=== PATIENT | male | born 1965 | race Native Hawaiian/Other Pacific Islander ===

== ENCOUNTER 2016-08-10 17:31 | Observation (INO) | payer OTHER ==
[2016-08-10 17:51] VITALS: O2SAT 98
[2016-08-10] MEDS ORDERED: Sodium Chloride 0.9% 1,000 ML IV STA (19:15)
[2016-08-10] MEDS ORDERED: Multivitamin (MVI) 10 ML, Thiamine 100 MG, Folic Acid 1 MG in Dextrose 5% In Water 1,00... IV ONE (19:18)
[2016-08-10 19:55] LABS: ADD MANUAL DIFF? NO
[2016-08-10 20:01] LABS: BASO # 0.02 K/mm3 (0.0-2.0); BASO % 0.4 % (0.0-3.0); EOS # 0.1 (0.0-0.7); EOS % 1.8 % (1.5-5.0); GRAN # 2.44 (1.4-6.5); GRAN % 53.5 % (50.0-68.0); HEMATOCRIT 38.6 % (42.0-52.0); LYMPH # 1.5 (1.2-3.4); LYMPH % 33.3 % (22.0-35.0); MEAN CELL VOLUME 99.2 fL (80.0-105.0); MEAN CORPUSCULAR HEMOGLOBIN 35.2 pg (25.0-35.0); MEAN CORPUSCULAR HGB CONC 35.5 g/dl (31.0-37.0); MEAN PLATELET VOLUME 9.7 fl (7.0-11.0); MONO # 0.5 (0.1-0.6); PLATELET COUNT 91 10^3/uL (120.0-450.0); RED CELL DISTRIBUTION WIDTH 12.5 % (11.5-14.5); WHITE BLOOD COUNT 4.6 10^3/ul (4.5-11.0)
--- NOTE | 2016-08-10 20:16 | ED PDOC ---
Arrival/HPI - General Chief Complaint: Alcohol Ingestion Time Seen by Provider: 08/10/16 18:32 Historian: Patient, Family - History of Present Illness Narrative History of Present Illness (Text): 08/10/16 20:16 Patient with pmh of chronic alcoholism, presents for psychiatric evaluation. Patient reports the following associated symptoms - loss of appetite, constant sleeping, increase in drinking etoh x 1 week. States that he is going through a lot of personal issues and has never seen a psychiatrist, he has been treating himself by drinking more alcohol. States that he was just admitted at [facility] for eoth withdrawal and he signed out AMA after the withdrawals improved. 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 Other psychiatric symptoms: (-) hallucinations, (-) suicidal ideation, (-) homicidal ideation. Otherwise: (-) trauma, (-) fever, (-) headache, (-) dyspnea, (-) vomiting, (-) substance abuse, (-) suicidal ideation , (-) patient intent of initiating a suicide attempt, (-) plan. PMD none Past Medical History - Provider Review Nursing Documentation Reviewed: Yes - Cardiac Hx OH: Yes - Pulmonary Hx Respiratory Disorders: No - Neurological Hx Neurological Disorder: No - HEENT Hx HEENT Disorder: No - Renal Hx Renal Disorder: No - Endocrine/Metabolic Hx Endocrine Disorders: No - Hematological/Oncological Hx Blood Disorders: No - Integumentary Hx Dermatological Disorder: No - Musculoskeletal/Rheumatological Hx Musculoskeletal Disorders: No - Genitourinary/Gynecological Hx Genitourinary Disorders: No - Psychiatric Hx Psychophysiologic Disorder: No Hx Substance Use: No - Surgical History Hx Coronary Artery Bypass Graft: Yes Family/Social History - Physician Review Nursing Documentation Reviewed: Yes Family/Social History: No Known Family HX Smoking Status: Heavy Smoker > 10 Cigarettes Daily Hx Alcohol Use: Yes Frequency of alcohol use: Daily Hx Substance Use: No Allergies/Home Meds Allergies/Adverse Reactions: Allergies No Known Allergies Allergy (Verified 08/10/16 17:43) Review of Systems - Review of Systems Constitutional: Normal. absent: Fatigue, Weight Change, Fevers Respiratory: Normal. absent: SOB, Cough, Sputum Cardiovascular: Normal. absent: Chest Pain, Palpitations, Edema Gastrointestinal: Normal, Appetite Changes (loss of appetite). absent: Abdominal Pain, Stool Changes Musculoskeletal: Normal. absent: Arthralgias, Back Pain, Neck Pain Skin: Normal. absent: Rash, Pruritis, Skin Lesions Neurological: Normal. absent: Headache, Dizziness, Focal Weakness Psychiatric: Normal, Depression. absent: Anxiety, Suicidal Ideation Physical Exam - Physical Exam Narrative Physical Exam (Text): 08/10/16 20:15 GENERAL APPEARANCE: Patient is awake, alert, oriented x 3, in no acute distress. (-) Tremors noted, (+) strong odor of etoh. SKIN: Warm, dry; (-) cyanosis. HEAD: (-) scalp swelling, (-) scalp tenderness. EYES: (-) conjunctival pallor, (-) scleral icterus, (-) nystagmus. ENMT: Mucous membranes dry. Airway patent: (-) stridor. NECK: (-) tenderness, (-) stiffness, (-) lymphadenopathy. CHEST AND RESPIRATORY: (-) rales, (-) rhonchi, (-) wheezes; breath sounds equal. ABDOMEN: Soft, (-) distention, (-) tenderness, (-) guarding. NEURO AND PSYCH: Mental status as above. Affect: flat. Memory: Intact. 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 Strength and DTRs symmetric. Vital Signs Temp Pulse Resp BP Pulse Ox 08/10/16 17:44 97.8 F 88 16 155/66 H 98 Medical Decision Making ED Course and Treatment: 08/10/16 20:13 51 yo chronic alcoholic, presents for feelings of depression and interest in obtaining help for etoh withdrawal. Plan: -- Labs -- Urinalysis -- EKG -- CXR -- NS bolus IV / Banana bag IV -- Placed in ED observation -- PES evaluation - RAD Interpretation Radiology Orders: 08/10/16 19:03 CHEST PORTABLE [RAD] Stat - Medication Orders Current Medication Orders: Discontinued Medications Sodium Chloride (Sodium Chloride 0.9%) 1,000 mls @ 1,000 mls/hr IV .Q1H STA Stop: 08/10/16 20:14 Last Admin: 08/10/16 19:35 Dose: 1,000 mls/hr Multivitamins/Vitamin C 10 ml/Thiamine HCl 100 mg/ Folic Acid 1 mg/ Dextrose 1, 011.2 mls @ 1,000 mls/hr IV .Q1H1M ONE Stop: 08/10/16 20:18 Last Admin: 08/10/16 21:10 Dose: 1,000 mls/hr Lorazepam (Ativan) 1 mg IV STAT STA Stop: 08/10/16 19:09 Last Admin: 08/10/16 19:38 Dose: 1 mg Lorazepam (Ativan) 1 mg IVP ONCE ONE PRN Reason: Protocol Stop: 08/11/16 01:45 ED OBSERVATION Date of observation admission: 08/10/16 Time of observation admission: 19:05 - Observation admission statement Patient is being placed in observation because:: Etoh intoxication and need for PES evaluation - Goals of Observation Goals of observation are:: To monitor patient's sign's and symptoms. - Progress Note Progress Note: 08/10/16 19:00 EKG: NSR at 84 bpm, normal axis, (-) acute ST changes, as read by GUSTAVO. CXR: NAD, as read by GUSTAVO. Labs reviewed, patient's etoh level is noted to be elevated. PES called and notified of consult. Patient seen and evaluated by PES, recommends repeat evaluation after patient is more sober for psychiatric disposition. Further plan of care for continued observation discussed with the patient and with family and they agree with plan for continued observation in the ER and re- evaluation by PES once the patient is clinically sober. 08/11/16 01:50 On re-evaluation, patient is awake, alert and oriented x 3. Patient has no tremors at this time, patient is observed ambulating in the ER with a normal gait with no tremors noted, however he states that he would like medication at this time to prevent any tremors from occurring. Ativan 1 mg IV ordered. After PES evaluation, patient is cleared for outpatient psychiatric treatment. Patient and family notified that he needs to f/u as an outpatient with psych referral provided. Patient and family also given referral to [facility] for rehab. Advised to call phone number provided if the patient is willing to go to rehab. Patient and family feel comfortable with outpatient f/u. Patient states he fully agrees with and understands discharge instructions. States that he agrees with the plan and disposition. Verbalized and repeated discharge instructions and plan. I have given the patient opportunity to ask any additional questions. Follow up with outpatient psych referral and rehab referral - [facility] in 1-2 days without fail. Advised to take medication as prescribed prn for withdrawal symptoms. Return to the emergency room at any time for any new or worsening symptoms. 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 Disposition/Present on Arrival - Present on Arrival Any Indicators Present on Arrival: No History of DVT/PE: No History of Uncontrolled Diabetes: No Urinary Catheter: No History of Decub. Ulcer: No History Surgical Site Infection Following: None - Disposition Have Diagnosis and Disposition been Completed?: Yes Diagnosis: Alcohol intoxication, Depression Disposition: HOME/ ROUTINE Disposition Time: 19:05 (Pt was placed in ED observation. ) Patient Plan: Discharge Condition: STABLE
[2016-08-10 20:19] LABS: ALB/GLOB RATIO 1.1 (1.1-1.8); ALKALINE PHOSPHATASE 102 U/L (38-133); ALT/SGPT 69 U/L (7-56); AST/SGOT 147 U/L (15-59); BILIRUBIN,TOTAL 1.8 mg/dL (0.2-1.3); BLOOD UREA NITROGEN 15 mg/dL (7-21); CALCIUM 8.4 mg/dL (8.4-10.5); CARBON DIOXIDE 29 mmol/L (21-33); GFR AFRICAN-AMERICAN > 60; GLUCOSE,RANDOM 96 mg/dL (70-110); POTASSIUM 3.6 mmol/L (3.6-5.0); SODIUM 141 mmol/L (132-148); TOTAL PROTEIN 6.1 g/dL (5.8-8.3)
[2016-08-10 20:20] LABS: CHLORIDE 104 mmol/L (98-107)
[2016-08-11 00:05] LABS: PH,URINE 6.5 (4.7-8.0); URINE BILIRUBIN NEGATIVE (NEGATIVE); URINE BLOOD NEGATIVE (NEGATIVE); URINE GLUCOSE (UA) 250 mg/dL (NEGATIVE); URINE KETONE NEGATIVE (NEGATIVE); URINE LEUKOCYTE ESTERASE NEGATIVE Leu/uL (NEGATIVE); URINE PROTEIN NEGATIVE mg/dL (<30 mg/dL); URINE UROBILINOGEN 0.2 E.U./dL (<1 E.U./dL)
[2016-08-11 00:25] LABS: URINE COLOR LIGHT YELLOW (YELLOW)
[2016-08-11 00:26] LABS: URINE APPEARANCE CLEAR (CLEAR)
[2016-08-11 02:12] VITALS: BP 147/61; PULSE 86; RESP 18; TEMP 98.1
--- NOTE | 2016-08-11 10:38 | RAD ---
HISTORY: psych eval COMPARISON: No prior. FINDINGS: LUNGS: No active pulmonary disease. PLEURA: No significant pleural effusion identified, no pneumothorax apparent. CARDIOVASCULAR: Normal heart size. Sternotomy wires noted. OSSEOUS STRUCTURES: No significant abnormalities. VISUALIZED UPPER ABDOMEN: Normal. OTHER FINDINGS: None. IMPRESSION: No active disease.
--- NOTE | 2016-08-11 18:12 | CARD ---
APPROVED REPORT EKG Measurement Heart [id number] ID [id number] <Conclusion> Normal sinus rhythm Minimal voltage criteria for LVH, may be normal variant Nonspecific T wave abnormality Prolonged QT Abnormal ECG
== END 2016-08-11 01:49 | disposition home or self-care (01) ==
LOC: ED 17:31 → EROBSV 19:05
PROVIDERS: ADMIT Emergency Medicine; ATTEND Emergency Medicine
DX: F32.9 Major depressive disorder, single episode, unspecified (principal); F10.129 Alcohol abuse with intoxication, unspecified; Y90.7 Blood alcohol level of 200-239 mg/100 ml
CPT/HCPCS: 71010; 80053; 80320; 80324; 80345; 80346; 80349; 80353; 80358; 80361; 81003; 83992; 85025; 90791; 93005; 96374; 96375; 96376; 99283; G0378; J2060; J3411; J7040; J7070

== ENCOUNTER 2017-06-07 19:00 | Inpatient (IN) | payer OTHER ==
[2017-06-07 19:04] VITALS: BMI 18.2
--- NOTE | 2017-06-07 19:35 | ED PDOC ---
Arrival/HPI - General Chief Complaint: Chest Pain Time Seen by Provider: 06/07/17 19:07 Historian: Patient, Family - History of Present Illness Narrative History of Present Illness (Text): 06/07/17 19:35 A 51 year old male presents to the emergency department accompanied by family requesting medical clearance. Patient reports he requires medical clearance to be able to join a 30 day residential program for alcoholism and depression. Patient notes he has not been feeling well for the past week. He notes feeling fatigue which is affecting his work. Family wants patient to start program but patient feels he is not strong enough. Patient reports a history of heart valve replacement in 1194 and has not had any cardiac follow up since. He admits to drinking alcohol daily due to feeling anxious and "hearing his heart skip a beat." Patient reports being seen by a physician who prescribed him antidepressants, with no improvement. At the time he was also informed about having an enlarged heart, but has not followed up with recommended specialist. Patient denies any fever, chills, nausea, vomiting, abdominal pain, chest pain, shortness of breath or any other complaints. Past Medical History - Provider Review Nursing Documentation Reviewed: Yes - Cardiac Hx Hypertension: Yes Other/Comment: Valve replacement. - Pulmonary Hx Respiratory Disorders: No - Neurological Hx Seizures: No - HEENT Hx HEENT Disorder: No - Renal Hx Renal Disorder: No - Endocrine/Metabolic Hx Endocrine Disorders: No - Hematological/Oncological Hx Blood Disorders: No - Integumentary Hx Dermatological Disorder: No - Musculoskeletal/Rheumatological Hx Musculoskeletal Disorders: No - Genitourinary/Gynecological Hx Sexually Transmitted Diseases: No - Psychiatric Hx Psychophysiologic Disorder: No Hx Substance Use: No - Surgical History Hx Coronary Artery Bypass Graft: Yes - Anesthesia Hx Anesthesia: Yes Hx Anesthesia Reactions: No Family/Social History - Physician Review Nursing Documentation Reviewed: Yes Family/Social History: No Known Family HX Smoking Status: Heavy Smoker > 10 Cigarettes Daily Hx Alcohol Use: Yes Frequency of alcohol use: Daily Hx Substance Use: No Allergies/Home Meds Allergies/Adverse Reactions: Allergies Penicillins Allergy (Verified 04/28/17 10:58) Review of Systems - Physician Review All systems were reviewed & negative as marked: Yes - Review of Systems Constitutional: Fatigue. absent: Fevers, Night Sweats Respiratory: absent: SOB Cardiovascular: absent: Chest Pain Gastrointestinal: absent: Abdominal Pain, Nausea, Vomiting Physical Exam Vital Signs Reviewed: Yes Vital Signs Temp Pulse Resp BP Pulse Ox 06/08/17 01:44 98.1 F 89 17 152/72 H 98 06/07/17 19:42 98.3 F 95 H 18 159/59 H 95 06/07/17 19:02 98.5 F 117 H 18 144/68 96 Temperature: Afebrile Blood Pressure: Normal Pulse: Tachycardic Respiratory Rate: Normal Appearance: Positive for: Comfortable, Cachectic Pain Distress: None Mental Status: Positive for: Alert and Oriented X 3 - Systems Exam Head: Present: Atraumatic, Normocephalic Pupils: Present: PERRL Extroacular Muscles: Present: EOMI Conjunctiva: Present: Icteric (scleral icterus) Mouth: Present: Moist Mucous Membranes Neck: Present: Normal Range of Motion Respiratory/Chest: Present: Clear to Auscultation, Good Air Exchange, Other ( Scar on sternum). No: Respiratory Distress, Accessory Muscle Use Cardiovascular: Present: Murmurs (Systolic murmur in 4th intercostal space of left anterior chest wall near sternum. Diastolic murmur in 4th intercostal space of right anterior chest wall near sternum. Both systolic and diastolic murmurs noted in apex of the heart. PMI laterally displaced approximately 2cm.) , Normal S1, S2 Abdomen: Present: Normal Bowel Sounds. No: Tenderness, Distention, Peritoneal Signs Back: Present: Normal Inspection Upper Extremity: Present: Normal Inspection. No: Cyanosis, Edema Lower Extremity: Present: Normal Inspection. No: Edema Neurological: Present: GCS=15, CN II-XII Intact, Speech Normal Skin: Present: Warm, Dry, Normal Color. No: Rashes Psychiatric: Present: Alert, Oriented x 3, Normal Insight, Normal Concentration Medical Decision Making ED Course and Treatment: 06/07/17 19:35 Impression: A 51 year old male requesting medical clearance. Patient complaining of not feeling well. Plan: -- Chest xray -- EKG -- Labs -- Urinalysis -- Reassess and disposition Progress Notes: 06/07/17 21:47: Case discussed in detail with Dr. Stokes. Will admit patient to her service. Requests consultations from Dr. Sagastume and Dr. Ace. 06/07/17 21:52: Case discussed with Dr. Rubio. He states that the patient could have endocarditis. Wants blood cultures and ECG before starting antibiotics, which is why antibiotics have not been given at this time. CT Abdomen and Pelvis With Intravenous Contrast Dictated and Authenticated by: Jeremy Andres MD 06/08/2017 1:19 AM Eastern Time ([place] & [place]) IMPRESSION: 1. Gallbladder distention measuring 12 cm with gallstones gallbladder wall thickening and pericholecystic fluid suspicious for acute cholecystitis. 2. Moderate free pelvic fluid. 06/08/17 01:30: Patient has gall stone pancreatitis. Case discussed with Dr. Stokes who requests consults from Dr. Deluna (Surgery) and Dr. Bolton ( Prospecting Observer). 06/08/17 01:47: Case discussed with surgical scrub technician. - Lab Interpretations Microbiology Results: Microbiology Results 06/07/17 21:30 Blood-Venous Blood Culture - Preliminary NO GROWTH AFTER 48 HOURS 06/07/17 21:00 Blood-Venous Blood Culture - Preliminary NO GROWTH AFTER 48 HOURS Lab Results: 06/07/17 19:33 06/07/17 19:33 Lab Results 06/07/17 20:30: Urine Opiates Screen Negative, Urine Methadone Screen Negative, Ur Barbiturates Screen Negative, Ur Phencyclidine Scrn Negative, Ur Amphetamines Screen Negative, U Benzodiazepines Scrn Negative, U Oth Cocaine Metabols Negative, U Cannabinoids Screen Negative 06/07/17 20:30: Urine Color Dark yellow, Urine Appearance Clear, Urine pH 6.5, Ur Specific [place] 1.020, Urine Protein 30 H, Urine Glucose (UA) Negative, Urine Ketones Trace H, Urine Blood Negative, Urine Nitrate Negative, Urine Bilirubin Moderate H, Urine Urobilinogen 1.0 H, Ur Leukocyte Esterase Negative, Urine RBC 0 - 2, Urine WBC 1 - 3, Ur Epithelial Cells None, Amorphous Sediment Few, Urine Bacteria Mod, Urine Other Fiber 06/07/17 19:35: Hepatitis A IgM Ab Negative, Hep Bs Antigen Negative, Hep B Core IgM Ab Negative, Hepatitis C Antibody Negative 06/07/17 19:33: Alcohol, Quantitative 12 H 06/07/17 19:33: Sodium 124 L, Potassium 2.9 L*, Chloride 87 L, Carbon Dioxide 21 , Anion Gap 19, BUN 18, Creatinine 0.7 L, Est GFR ( Amer) > 60, Est GFR ( Non-Af Amer) > 60, Random Glucose 184 H, Calcium 8.2 L, Total Bilirubin 3.6 H, Direct Bilirubin 3.0 H, AST 445 H, ALT 155 H, Alkaline Phosphatase 328 H D, Lactate Dehydrogenase 1305 H, Total Creatine Kinase 119, Troponin I 0.08, NT-Pro -B Natriuret Pep 230, Total Protein 5.6 L, Albumin 3.0, Globulin 2.6, Albumin/ Globulin Ratio 1.1, Lipase 600 H 06/07/17 19:33: PT 11.8, INR 1.03 06/07/17 19:33: WBC 4.0 L, RBC 3.61, Hgb 12.3 L, Hct 33.4 L, MCV 92.5, MCH 34.1 , MCHC 36.8, RDW 14.3, Plt Count 110 L, MPV 10.5, Gran % 68.1 H, Lymph % (Auto) 22.3, Johnson % (Auto) 8.5 H, Eos % (Auto) 0.8 L, Baso % (Auto) 0.3, Gran # 2.73, Lymph # (Auto) 0.9 L, Johnson # (Auto) 0.3, Eos # (Auto) 0.0, Baso # (Auto) 0.01 I have reviewed the lab results: Yes - RAD Interpretation Radiology Orders: 06/07/17 19:20 CHEST PORTABLE [RAD] Stat 06/07/17 20:37 CXR [CHEST ONE VIEW] [RAD] Stat 06/07/17 21:12 ABDOMEN & PELVIS [ABD PELVIS PO & IV CONTRAST] [CT] Stat - Medication Orders Current Medication Orders: Meropenem (Merrem Iv 1 Gm Premix) 50 mls @ 100 mls/hr IVPB Q8 MICKEY PRN Reason: Protocol Stop: 06/17/17 06:01 Last Admin: 06/10/17 14:20 Dose: 100 mls/hr eMAR Start Stop Document 06/10/17 14:20 RT (Rec: 06/10/17 14:21 RT [id number]) Intravenous Solution Start Date 06/10/17 Start Time 14:21 End Date 06/10/17 End time 15:00 Total Infusion Time 39 Lorazepam (Ativan) 1 mg IVP Q6H PRN; Protocol PRN Reason: Anxiety Last Admin: 06/09/17 22:21 Dose: 1 mg IVP Administration Document 06/09/17 22:21 HE (Rec: 06/09/17 22:21 HE [id number]) Charges for Administration # of IVP Administrations 1 Behavioural Document 06/09/17 22:21 BK (Rec: 06/09/17 22:21 HE [id number]) Maintenance Maintenance Dose No Nonmedicinal Nonmedicinal Interventions Redirect Behavior Behavior for Medication: Anxiety Re-Assess: Reassess Psych Meds Document 06/09/17 22:51 BK (Rec: 06/10/17 00:40 HE [id number]) Reassess Psych Med Effective Pantoprazole Sodium (Protonix Ec Tab) 40 mg PO 0600 [facility] Last Admin: 06/10/17 05:17 Dose: 40 mg Thiamine HCl (Vitamin B1 Tab) 200 mg PO DAILY [facility] Last Admin: 06/10/17 09:34 Dose: 200 mg Discontinued Medications Vancomycin HCl (Vancomycin 1gm) 1 gm in 250 mls @ 167 mls/hr IVPB Q12H [facility] PRN Reason: Protocol Stop: 06/15/17 23:01 Last Admin: 06/08/17 22:08 Dose: 167 mls/hr eMAR Start Stop Document 06/08/17 22:08 LGA (Rec: 06/08/17 22:09 LGA [id number]) Intravenous Solution Start Date 06/08/17 Start Time 22:08 End Date 06/08/17 End time 23:38 Total Infusion Time 90 Lactated Ringer's (Lactated Ringer's) 1,000 mls @ 100 mls/hr IV .Q10H [facility] Last Admin: 06/10/17 13:52 Dose: Multivitamins/Vitamin C 10 ml/Thiamine HCl 100 mg/ Folic Acid 1 mg/ Sodium Chloride 1,011.2 mls @ 100 mls/hr IV .Q10H7M MICKEY Stop: 06/09/17 16:20 Last Admin: 06/08/17 22:07 Dose: 100 mls/hr eMAR Start Stop Document 06/08/17 22:07 LGA (Rec: 06/08/17 22:07 LGA [id number]) Intravenous Solution Start Date 06/08/17 Start Time 22:07 Multivitamins/Vitamin C 10 ml/Thiamine HCl 100 mg/ Folic Acid 1 mg/ Sodium Chloride 1,011.2 mls @ 100 mls/hr IV .Q10H7M ONE Stop: 06/09/17 08:25 Last Admin: 06/08/17 22:33 Dose: Potassium Chloride (Potassium Chloride 20 Meq/100 Ml) 20 meq in 100 mls @ 50 mls/hr IVPB ONCE ONE Stop: 06/09/17 12:19 Last Admin: 06/09/17 12:00 Dose: 50 mls/hr eMAR Start Stop Document 06/09/17 12:00 [facility] (Rec: 06/09/17 17:15 [email or web address] Intravenous Solution Start Date 06/09/17 Start Time 12:00 End Date 06/09/17 End time 13:00 Total Infusion Time 60 Lorazepam (Ativan) 2 mg PO ONCE ONE PRN Reason: Protocol Stop: 06/08/17 01:30 Last Admin: 06/08/17 02:01 Dose: 2 mg Behavioural Document 06/08/17 02:01 ST (Rec: 06/08/17 02:01 ST [id number]) Behavior Behavior for Medication: Insomnia Re-Assess: Reassess Psych Meds Document 06/08/17 03:01 ST (Rec: 06/08/17 03:28 ST [id number]) Reassess Psych Med Effective Pantoprazole Sodium (Protonix Inj) 40 mg IVP DAILY MICKEY Last Admin: 06/09/17 09:54 Dose: 40 mg IVP Administration Document 06/09/17 09:54 [facility] [place] (Rec: 06/09/17 09:55 [id number] Charges for Administration # of IVP Administrations 1 Potassium Chloride (K-Dur 20 Meq Er Tab) 40 meq PO STAT STA Stop: 06/07/17 23:29 Last Admin: 06/08/17 00:04 Dose: 40 meq - Scribe Statement The provider has reviewed the documentation as recorded by the Scribe Disposition/Present on Arrival - Present on Arrival Any Indicators Present on Arrival: No History of DVT/PE: No History of Uncontrolled Diabetes: No Urinary Catheter: No History of Decub. Ulcer: No History Surgical Site Infection Following: None - Disposition Have Diagnosis and Disposition been Completed?: Yes Diagnosis: Pancreatitis, Gallstone pancreatitis, Endocarditis Disposition: HOSPITALIZED Disposition Time: 15:57 Patient Plan: Admission Condition: GOOD
[2017-06-07 19:45] LABS: BASO # 0.01 K/mm3 (0.0-2.0); BASO % 0.3 % (0.0-3.0); EOS % 0.8 % (1.5-5.0); GRAN # 2.73 (1.4-6.5); GRAN % 68.1 % (50.0-68.0); HEMOGLOBIN 12.3 g/dL (14.0-18.0); LYMPH # 0.9 (1.2-3.4); LYMPH % 22.3 % (22.0-35.0); MEAN CELL VOLUME 92.5 fl (80.0-105.0); MEAN CORPUSCULAR HEMOGLOBIN 34.1 pg (25.0-35.0); MEAN CORPUSCULAR HGB CONC 36.8 g/dl (31.0-37.0); MEAN PLATELET VOLUME 10.5 fl (7.0-11.0); MONO # 0.3 (0.1-0.6); MONO % 8.5 % (1.0-6.0); RBC 3.61 10^6/uL (3.5-6.1); RED CELL DISTRIBUTION WIDTH 14.3 % (11.5-14.5)
[2017-06-07 20:02] LABS: ALB/GLOB RATIO 1.1 (1.1-1.8); ALT/SGPT 155 U/L (7-56); AST/SGOT 445 U/L (17-59); BLOOD UREA NITROGEN 18 mg/dL (7-21); CALCIUM 8.2 mg/dL (8.4-10.5); GFR AFRICAN-AMERICAN > 60; GFR NON-AFRICAN AMERICAN > 60; INR 1.03 (0.93-1.08); PROTHROMBIN TIME 11.8 SECONDS (9.4-12.5)
[2017-06-07 20:18] LABS: B-TYPE NATRIURETIC PEPTIDE 230 pg/mL (0-450)
[2017-06-07 20:25] LABS: LIPASE 600 U/L (23-300); TROPONIN I 0.08 ng/mL
[2017-06-07 20:43] LABS: PH,URINE 6.5 (4.7-8.0); URINE BILIRUBIN MODERATE (NEGATIVE); URINE BLOOD NEGATIVE (NEGATIVE); URINE GLUCOSE (UA) NEGATIVE (NEGATIVE); URINE LEUKOCYTE ESTERASE NEGATIVE Leu/uL (NEGATIVE); URINE PROTEIN 30 mg/dL (<30 mg/dL)
[2017-06-07 20:47] LABS: URINE APPEARANCE CLEAR (CLEAR); URINE COLOR DARK YELLOW (YELLOW)
[2017-06-07 20:50] LABS: URINE AMORPHOUS SEDIMENT FEW; URINE BACTERIA MOD (NEG); URINE RBC 0 - 2 /hpf (0-2)
[2017-06-07] MEDS ORDERED: Iohexol 240 (50 ml) ONE (21:37)
[2017-06-07 21:38] LABS: BARBITURATES, UR NEGATIVE (NEGATIVE); BENZODIAZEPINES, UR NEGATIVE (NEGATIVE); OPIATES, UR NEGATIVE (NEGATIVE); PHENCYCLIDINE, UR NEGATIVE (NEGATIVE)
[2017-06-07] MEDS ORDERED: Iohexol 350 MG/100 ML VIAL ONE (23:22)
[2017-06-07] MEDS: Vancomycin 1gm in NS 250ml 1 GM/250 ML BAG IVPB SCH (23:24)
[2017-06-07] MEDS ORDERED: Potassium Chloride 20 mEq ER Tab PO STA (23:28)
--- NOTE | 2017-06-08 00:07 | CON ---
DATE: CARDIOLOGY CONSULT REASON FOR CONSULTATION: Abnormal EKG, to rule out bacterial endocarditis. HISTORY OF PRESENT ILLNESS: The patient is a 51-year-old [place] male, who had a valve replacement from a cadaver in 1994 in [place]. The patient did not require anticoagulation and has no cardiac problems since then. The patient is an EtOH abuse. He presented because of diarrhea, abdominal discomfort, weakness as well as shortness of breath. When asked about chest pain, he admitted to having chest pain, but is unable to describe it's character. The patient is unaware of any prior cardiac history. SOCIAL HISTORY: The patient is EtOH abuse. 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 MEDICATIONS: The patient is on no medications at home. REVIEW OF SYSTEMS: The patient is unaware of any fever or chills. He does report significant loss of weight recently. He does report weakness, abdominal discomfort, diarrhea and at times nausea. PHYSICAL EXAMINATION: GENERAL: The patient is a middle-aged male, who appears emaciated, does not appear to be in any respiratory distress. VITAL SIGNS: Blood pressure 149/59, heart rate 95, temperature 98.3, respirations 18. HEENT: Normocephalic. CHEST: Clear. HEART: S1 and S2 regular. Grade II/ ejection systolic murmur over left sternal border and a grade III/ early diastolic murmur over both right and left parasternal area. ABDOMEN: Soft. EXTREMITIES: No edema. LABORATORY DATA: Hemoglobin and hematocrit 12.3 and 33.4, white count 4, platelet count 110,000. SMA-7: Sodium 124, potassium 2.9, chloride 87, carbon dioxide 21, glucose 184, BUN 18, creatinine 0.7. Lipase is 600. Alkaline phosphatase 328. AST is 445, ALT is 155, total bilirubin 3.6. Alcohol level is 12. INR is 1.03. Chest x-ray was unremarkable except for the sternotomy wires. ASSESSMENT: 1. Acute pancreatitis. 2. Ethyl alcohol abuse. 3. Status post valve replacement with a cadaver valve. The patient or the family do not recall which valve that was replaced. 4. Rule out aortic insufficiency. 5. Rule out bacterial endocarditis. 6. Profound hypokalemia. 7. Hepatitis with cholestasis. RECOMMENDATIONS: Admit the patient to telemetry. Optimize potassium replacement. Obtain 2 sets of blood cultures and obtain an echocardiogram. Obtain an abdomen and pelvis CT scan to evaluate for pancreatitis and possible ascites. Obtain acute hepatitis profile. Fernando Rubio MD
--- NOTE | 2017-06-08 01:19 | CT ---
EXAM: CT Abdomen and Pelvis With Intravenous Contrast CLINICAL HISTORY: 51 years old, male; Abnormal findings; Abnormal lab test; Elevated lipase; Prior surgery; Surgery date: 6+ months; Surgery type: Coronary bypass; Additional info: Pancreatitis? Lipase 600 TECHNIQUE: Axial computed tomography images of the abdomen and pelvis with intravenous contrast. All CT scans at this facility use one or more dose reduction techniques, viz.: automated exposure control; ma/kV adjustment per patient size (including targeted exams where dose is matched to indication; i.e. head); or iterative reconstruction technique. 551 images are submitted.Sagittal , axial and coronal MPR reformatted images are submitted. Oral contrast was administered. CONTRAST: 96 mL of OMNI 350 administered intravenously. COMPARISON: No relevant prior studies available. FINDINGS: Lung bases: Unremarkable. No mass. No consolidation. Heart: Cardiomegaly. ABDOMEN: Liver: Enlarged fatty liver measuring 23.5 cm. Gallbladder and bile ducts: Gallbladder distention measuring 12 cm with gallstones gallbladder wall thickening and pericholecystic fluid suspicious for acute cholecystitis. Pancreas: Unremarkable. No mass. No ductal dilation. Spleen: Unremarkable. No splenomegaly. Adrenals: Unremarkable. No mass. Kidneys and ureters: Right renal cyst measuring 1.6 cm. No hydronephrosis. Stomach and bowel: Nonspecific colonic thickening likely due to underdistention versus nonspecific colitis. Diverticulosis. Appendix: The appendix not identified with complete certainty due to unopacified cecum and distal small bowel. There is lack of intra-abdominal fat. If clinical concern remains, a repeat study with thin sections after an appropriate time interval may allow oral contrast to opacify the cecum. PELVIS: Bladder: Partially decompressed bladder with bladder wall thickening. Correlation with urinalysis is recommended only if clinical cystitis is suspected. Reproductive: Enlarged prostate gland with calcifications. ABDOMEN and PELVIS: Intraperitoneal space: Moderate free pelvic fluid. There is fluid in the right paracolic region. There is fluid in the Hanna's pouch. No free air. Bones/joints: No acute fracture. No dislocation. Soft tissues: Unremarkable. Vasculature: Unremarkable. No abdominal aortic aneurysm. Lymph nodes: Unremarkable. No enlarged lymph nodes. IMPRESSION: 1. Gallbladder distention measuring 12 cm with gallstones gallbladder wall thickening and pericholecystic fluid suspicious for acute cholecystitis. 2. Moderate free pelvic fluid.
[2017-06-08] MEDS: Meropenem IV 1 gm in NS 50 ML IVPB SCH ×3 (05:57→22:08)
[2017-06-08] MEDS: Lactated Ringer's 1,000 ML IV SCH ×2 (06:58→19:08)
--- NOTE | 2017-06-08 07:31 | CP.PCM.CON ---
<Jc Pan - Last Filed: 06/08/17 07:31> History of Present Illness - History of Present Illness History of Present Illness: Surgery: Dr. Deluna CC: Gallstone pancreatitis HPI: 51M w. hx of depression and heart valve replacement in the mid 90s w. no follow up since presents to ED seeking medical clearance to enter 30 day rehab program for alcoholism. Surgery was consulted for gallstone pancreatitis. Pt states that he has been having intermittent epigastric pain for the past week. Pain is accompanied by nausea, no vomiting. He reports intermittent diarrhea and decreased appetite. He reports chills, no fever. CT in ED showed enlarged GB w. stones and thick wall. Lab work showed transamninitis and elevated lipase. PMH: depression PSH: heart valve replacement Meds: MAR reviewed ALL: PCN Social: ETOH 3-4 shots of vodka/day, no tobacco/drugs Fhx: Non-contributory Review of Systems - Review of Systems All systems: reviewed and no additional remarkable complaints except (HPI) Past Patient History - Past Social History Smoking Status: Light Smoker < 10 Cigarettes Daily - CARDIAC Hx Hypertension: Yes - PULMONARY Hx Respiratory Disorders: No - NEUROLOGICAL Hx Neurological Disorder: No - HEENT Hx HEENT Problems: No - RENAL Hx Chronic Kidney Disease: No - ENDOCRINE/METABOLIC Hx Endocrine Disorders: No - HEMATOLOGICAL/ONCOLOGICAL Hx Blood Disorders: No - INTEGUMENTARY Hx Dermatological Problems: No - MUSCULOSKELETAL/RHEUMATOLOGICAL Hx Musculoskeletal Disorders: No Hx Falls: No - GASTROINTESTINAL Hx Gastrointestinal Disorders: No - GENITOURINARY/GYNECOLOGICAL Hx Genitourinary Disorders: No - PSYCHIATRIC Hx Anxiety: Yes Hx Depression: Yes - SURGICAL HISTORY Hx Surgeries: Yes - ANESTHESIA Hx Anesthesia: Yes Hx Anesthesia Reactions: No Meds Allergies/Adverse Reactions: Allergies Allergy/AdvReac Type Severity Reaction Status Date / Time Penicillins Allergy Verified 04/28/17 10:58 - Medications Medications: Current Medications Meropenem (Merrem Iv 1 Gm Premix) 50 mls @ 100 mls/hr IVPB Q8 [facility] PRN Reason: Protocol Stop: 06/17/17 06:01 Last Admin: 06/08/17 05:57 Dose: 100 mls/hr Vancomycin HCl (Vancomycin 1gm) 1 gm in 250 mls @ 167 mls/hr IVPB Q12H [facility] PRN Reason: Protocol Stop: 06/15/17 23:01 Last Admin: 06/07/17 23:24 Dose: 167 mls/hr Lactated Ringer's (Lactated Ringer's) 1,000 mls @ 100 mls/hr IV .Q10H [facility] Last Admin: 06/08/17 06:58 Dose: 100 mls/hr Physical Exam - Constitutional Appears: Non-toxic, No Acute Distress - Head Exam Head Exam: ATRAUMATIC, NORMOCEPHALIC - Eye Exam Eye Exam: EOMI - ENT Exam ENT Exam: Mucous Membranes Moist - Neck Exam Neck exam: Positive for: Full Rom - Respiratory Exam Respiratory Exam: NORMAL BREATHING PATTERN. absent: Accessory Muscle Use, Respiratory Distress - GI/Abdominal Exam GI & Abdominal Exam: Soft, Tenderness. absent: Distended, Firm, Guarding, Rebound, Rigid - Extremities Exam Extremities exam: Negative for: calf tenderness, pedal edema - Neurological Exam Neurological exam: Alert, Oriented x3 - Psychiatric Exam Psychiatric exam: Normal Affect, Normal Mood - Skin Skin Exam: Dry, Normal Color, Warm Results - Vital Signs Recent Vital Signs: Last Vital Signs Temp 97.8 F 06/08/17 06:00 Pulse 89 06/08/17 06:00 Resp 19 06/08/17 06:00 BP 125/50 L 06/08/17 06:00 Pulse Ox 98 06/08/17 06:00 - Labs Result Diagrams: 06/07/17 19:33 06/07/17 19:33 - Imaging and Cardiology CT scan - abdomen Status: Image reviewed by me, Report reviewed by me Assessment & Plan - Assessment and Plan (Free Text) Assessment: 51M w. gallstone pancreatitis -NPO -IVF -F/U US and MRCP -d/w attending Zemaitis PGY3 <Clifford Deluna - Last Filed: 06/08/17 20:34> Meds - Medications Medications: Current Medications Meropenem (Merrem Iv 1 Gm Premix) 50 mls @ 100 mls/hr IVPB Q8 [facility] PRN Reason: Protocol Stop: 06/17/17 06:01 Last Admin: 06/08/17 13:24 Dose: 100 mls/hr Vancomycin HCl (Vancomycin 1gm) 1 gm in 250 mls @ 167 mls/hr IVPB Q12H [facility] PRN Reason: Protocol Stop: 06/15/17 23:01 Last Admin: 06/08/17 11:31 Dose: 167 mls/hr Lactated Ringer's (Lactated Ringer's) 1,000 mls @ 100 mls/hr IV .Q10H [facility] Last Admin: 06/08/17 19:08 Dose: Not Given Multivitamins/Vitamin C 10 ml/Thiamine HCl 100 mg/ Folic Acid 1 mg/ Sodium Chloride 1,011.2 mls @ 100 mls/hr IV .Q10H7M MICKEY Stop: 06/09/17 16:20 Lorazepam (Ativan) 1 mg IVP Q6H PRN; Protocol PRN Reason: Anxiety Pantoprazole Sodium (Protonix Inj) 40 mg IVP DAILY MICKEY Thiamine HCl (Vitamin B1 Tab) 200 mg PO DAILY [facility] Results - Vital Signs Recent Vital Signs: Last Vital Signs Temp 98.8 F 06/08/17 18:00 Pulse 82 06/08/17 18:00 Resp 20 06/08/17 18:00 BP 115/54 L 06/08/17 18:00 Pulse Ox 98 06/08/17 06:00 - Labs Result Diagrams: 06/08/17 11:00 06/08/17 12:30 Labs: Laboratory Results - last 24 hr 06/08/17 06/08/17 06/08/17 11:00 12:30 12:30 WBC 2.6 L* D RBC 3.54 Hgb 11.9 L Hct 33.7 L MCV 95.2 MCH 33.6 MCHC 35.3 RDW 14.2 Plt Count 84 L MPV 10.4 Gran % 66.4 Lymph % (Auto) 22.5 [place] % (Auto) 9.2 H Eos % (Auto) 1.5 Baso % (Auto) 0.4 Gran # 1.74 Lymph # (Auto) 0.6 L [place] # (Auto) 0.2 Eos # (Auto) 0.0 Baso # (Auto) 0.01 Sodium 132 Potassium 3.6 Chloride 93 L Carbon Dioxide 33 Anion Gap 9 L BUN 11 Creatinine 0.8 Est GFR ( Amer) > 60 Est GFR (Non-Af Amer) > 60 Random Glucose 138 H Calcium 8.5 Total Bilirubin 4.5 H AST 433 H ALT 154 H Alkaline Phosphatase 268 H Troponin I 0.07 Total Protein 5.3 L Albumin 2.8 L Globulin 2.5 Albumin/Globulin Ratio 1.1 Triglycerides 710 H Cholesterol 273 H LDL Cholesterol Direct 57 HDL Cholesterol 24 L Amylase 109 Lipase 542 H Procalcitonin 0.81 H IgG 06/08/17 12:30 WBC RBC Hgb Hct MCV MCH MCHC RDW Plt Count MPV Gran % Lymph % (Auto) [place] % (Auto) Eos % (Auto) Baso % (Auto) Gran # Lymph # (Auto) [place] # (Auto) Eos # (Auto) Baso # (Auto) Sodium Potassium Chloride Carbon Dioxide Anion Gap BUN Creatinine Est GFR ( Amer) Est GFR (Non-Af Amer) Random Glucose Calcium Total Bilirubin AST ALT Alkaline Phosphatase Troponin I Total Protein Albumin Globulin Albumin/Globulin Ratio Triglycerides Cholesterol LDL Cholesterol Direct HDL Cholesterol Amylase Lipase Procalcitonin IgG 834.1 Assessment & Plan - Assessment and Plan (Free Text) Assessment: Dx ETOH Hepatitis Not gallstone pancreatitis MRCP ordered This consult done under my direct supervision: Surgery not indicated now Foster Deluna MD FACS
--- NOTE | 2017-06-08 08:16 | US ---
HISTORY: gallstone pancreatitis COMPARISON: None. TECHNIQUE: Sonographic evaluation of the abdomen. FINDINGS: LIVER: Measures 21 cm. Heterogeneous echogenicity of the liver parenchyma. No mass. No intrahepatic bile duct dilatation. GALLBLADDER: Gallstones with pericholecystic fluid and wall edema. Gallbladder thickness measures 2-4 millimeters. COMMON BILE DUCT: Measures mm. No stones. No dilatation. PANCREAS: Unremarkable as visualized. No mass. No ductal dilatation. RIGHT KIDNEY: Measures cm. Normal echogenicity. No calculus, mass, or hydronephrosis. 1.2 centimeter right lower pole renal cyst LEFT KIDNEY: Measures cm. Normal echogenicity. No calculus, mass, or hydronephrosis. SPLEEN: Normal in size and contour. No mass. AORTA: No aneurysmal dilatation. IVC: Unremarkable. OTHER FINDINGS: None. IMPRESSION: Gallstones and sludge with gallbladder wall thickening and pericholecystic fluid suspicious for acute cholecystitis. Echogenic liver suggesting fatty infiltration.
--- NOTE | 2017-06-08 08:35 | RAD ---
PROCEDURE: CHEST RADIOGRAPH, 1 VIEW HISTORY: lateral please, alrady have portable COMPARISON: None available. FINDINGS: LUNGS: The lungs are clear. PLEURA: No pneumothorax or pleural fluid seen. CARDIOVASCULAR: Mild cardiomegaly. Status post median sternotomy. OSSEOUS STRUCTURES: Within normal limits for the patient's age. VISUALIZED UPPER ABDOMEN: Normal. OTHER FINDINGS: None. IMPRESSION: No acute findings.
--- NOTE | 2017-06-08 08:50 | RAD ---
HISTORY: Fatigue, Dyspnea, S/P Valve replacement 1994 COMPARISON: 08/10/2016. FINDINGS: LUNGS: The lungs are well inflated and clear. PLEURA: No significant pleural effusion identified, no pneumothorax apparent. CARDIOVASCULAR: There is mild cardiomegaly. Status post median sternotomy. OSSEOUS STRUCTURES: No significant abnormalities. VISUALIZED UPPER ABDOMEN: Normal. OTHER FINDINGS: None. IMPRESSION: No active pulmonary disease.
--- NOTE | 2017-06-08 10:34 | CP.PCM.PCO ---
Physician Communication Note - Physician Communication Note Physician Communication Note: GB Pancreatitis-await MRCP-NO Surgery needed now
--- NOTE | 2017-06-08 10:41 | CP.PCM.CON ---
<Naman Salazar - Last Filed: 06/08/17 10:57> History of Present Illness - History of Present Illness History of Present Illness: PGY4 GI Consult Shimon Price is a 51M w/ hx of depression and heart valve replacement, who presents to ED seeking medical clearance to enter 30 day rehab program for alcoholism. He states that he was having abd pain for the past few weeks to a month, especially after meals. He denies any current abd pain upon our evaluation. He notes no follow-up with medicine since his valve replacement. He has been taking antidepressants. A Ct abd revealed distended gallbladder with thickened wall. Gi was gallstone pancreatitis. Pain is accompanied by nausea, no vomiting. He reports intermittent diarrhea and decreased appetite. He reports chills, no fever. Denies nay previous colonoscopy or endoscopy. He still continues to drink 3-4 shots of vodka a day PMH: depression PSH: heart valve replacement Meds: MAR reviewed Social: ETOH 3-4 shots of vodka/day, no tobacco/drugs Fhx: reviewed; no Gi related malignancy ROS: 12 point ROS conducted, neg other than above Past Patient History - Past Social History Smoking Status: Light Smoker < 10 Cigarettes Daily - CARDIAC Hx Hypertension: Yes - PULMONARY Hx Respiratory Disorders: No - NEUROLOGICAL Hx Neurological Disorder: No - HEENT Hx HEENT Problems: No - RENAL Hx Chronic Kidney Disease: No - ENDOCRINE/METABOLIC Hx Endocrine Disorders: No - HEMATOLOGICAL/ONCOLOGICAL Hx Blood Disorders: No - INTEGUMENTARY Hx Dermatological Problems: No - MUSCULOSKELETAL/RHEUMATOLOGICAL Hx Musculoskeletal Disorders: No Hx Falls: No - GASTROINTESTINAL Hx Gastrointestinal Disorders: No - GENITOURINARY/GYNECOLOGICAL Hx Genitourinary Disorders: No - PSYCHIATRIC Hx Anxiety: Yes Hx Depression: Yes - SURGICAL HISTORY Hx Surgeries: Yes - ANESTHESIA Hx Anesthesia: Yes Hx Anesthesia Reactions: No Meds Allergies/Adverse Reactions: Allergies Allergy/AdvReac Type Severity Reaction Status Date / Time Penicillins Allergy Verified 04/28/17 10:58 - Medications Medications: Current Medications Meropenem (Merrem Iv 1 Gm Premix) 50 mls @ 100 mls/hr IVPB Q8 [facility] PRN Reason: Protocol Stop: 06/17/17 06:01 Last Admin: 06/08/17 05:57 Dose: 100 mls/hr Vancomycin HCl (Vancomycin 1gm) 1 gm in 250 mls @ 167 mls/hr IVPB Q12H [facility] PRN Reason: Protocol Stop: 06/15/17 23:01 Last Admin: 06/07/17 23:24 Dose: 167 mls/hr Lactated Ringer's (Lactated Ringer's) 1,000 mls @ 100 mls/hr IV .Q10H [facility] Last Admin: 06/08/17 06:58 Dose: 100 mls/hr Physical Exam - Constitutional Appears: Well, No Acute Distress - Head Exam Head Exam: ATRAUMATIC, NORMOCEPHALIC - Eye Exam Eye Exam: Normal appearance. absent: Scleral icterus - ENT Exam ENT Exam: Mucous Membranes Moist, Normal Exam - Neck Exam Neck exam: Positive for: Normal Inspection - Respiratory Exam Respiratory Exam: Clear to Auscultation Bilateral, NORMAL BREATHING PATTERN. absent: Rales, Rhonchi, Wheezes, Respiratory Distress - Cardiovascular Exam Cardiovascular Exam: REGULAR RHYTHM, +S1, +S2 - GI/Abdominal Exam GI & Abdominal Exam: Normal Bowel Sounds, Soft, Tenderness (slight tenderness RUQ). absent: Distended, Firm, Guarding, Organomegaly, Rebound, Rigid - Extremities Exam Extremities exam: Negative for: joint swelling, pedal edema - Neurological Exam Neurological exam: Alert, Oriented x3 - Skin Skin Exam: Dry, Intact, Normal Color, Warm Results - Vital Signs Recent Vital Signs: Last Vital Signs Temp 97.8 F 06/08/17 06:00 Pulse 89 06/08/17 06:00 Resp 19 06/08/17 06:00 BP 125/50 L 06/08/17 06:00 Pulse Ox 98 06/08/17 06:00 - Labs Result Diagrams: 06/07/17 19:33 06/07/17 19:33 Assessment & Plan - Assessment and Plan (Free Text) Assessment: Shimon Ramírez is a 51M w/ hx of drepression who presents to the Er for ETOH detox. He was found to have Acute cholecystitis and possible pancreatitis Acute Cholecystitis Cholelithiasis Pancreatitis Elevated LFTS, DDx: 2/2 above, vs alcoholic hepatitis; r/o autoimmune and viral etiology, r/o CBD stone Plan: -waiting on MRI -will send for autoimmune and viral etiology -monitor LFTs -waiting on MRCP -avoid alcohol consumption -surgury on board, will eventually need lap adonis -will send TG levels -diet as tolerated, low fat -continue Iv hydration D/W Dr. Mcconnell <JayeshMohan - Last Filed: 06/08/17 11:14> Meds - Medications Medications: Current Medications Meropenem (Merrem Iv 1 Gm Premix) 50 mls @ 100 mls/hr IVPB Q8 [facility] PRN Reason: Protocol Stop: 06/17/17 06:01 Last Admin: 06/08/17 05:57 Dose: 100 mls/hr Vancomycin HCl (Vancomycin 1gm) 1 gm in 250 mls @ 167 mls/hr IVPB Q12H [facility] PRN Reason: Protocol Stop: 06/15/17 23:01 Last Admin: 06/07/17 23:24 Dose: 167 mls/hr Lactated Ringer's (Lactated Ringer's) 1,000 mls @ 100 mls/hr IV .Q10H [facility] Last Admin: 06/08/17 06:58 Dose: 100 mls/hr Results - Vital Signs Recent Vital Signs: Last Vital Signs Temp 97.8 F 06/08/17 06:00 Pulse 89 06/08/17 06:00 Resp 19 06/08/17 06:00 BP 125/50 L 06/08/17 06:00 Pulse Ox 98 06/08/17 06:00 - Labs Result Diagrams: 06/07/17 19:33 06/07/17 19:33 Attending/Attestation - Attestation I have personally seen and examined this patient.: Yes I have fully participated in the care of the patient.: Yes I have reviewed all pertinent clinical information: Yes Notes (Text): 06/08/17 11:05 I have seen and examined patient with GI fellow. Agree with above documentation with the following additions. In brief, this is a 51 year old male with history of depression, ETOH abuse, cardiac valve replacement in 1994 who presents to hospital with complaint of generalized weakness, malaise, and abdominal pain. He describes progressive symptoms over the past 3 days associated with subjective weight loss and loss of appetite. He endorses intermittent RUQ abdominal pain which radiates to back and worse after meal consumption. He reports ongoing ETOH abuse and consumes multiple shots of liquor daily. He denies nausea, vomiting, fever/chills, jaundice, pruritis, or prior history of liver disease. No prior endoscopic evaluation. Depression Cardiac valve replacement ETOH abuse Transaminitis - acute ETOH hepatitis vs cholecystitis Abdominal US reviewed by me showing cholelithiasis, jessica-cholecystic fluid, GB wall thickening, normal caliber CBD - Liquid diet as tolerated - Obtain viral hepatitis and autoimmune panels - Continue to monitor LFTs, avoid hepatotoxic therapies - Continue with antibiotic therapy - Follow up surgical recommendations - MRCP ordered by medical team, follow up results - ETOH cessation counseling. Patient current DF is 7, not candidate for steroid therapy. - Will continue to monitor patient clinical course
[2017-06-08] MEDS: Vancomycin 1gm in NS 250ml 1 GM/250 ML BAG IVPB SCH ×2 (11:31→22:08)
[2017-06-08 12:38] LABS: BASO # 0.01 K/mm3 (0.0-2.0); BASO % 0.4 % (0.0-3.0); EOS % 1.5 % (1.5-5.0); GRAN # 1.74 (1.4-6.5); GRAN % 66.4 % (50.0-68.0); HEMOGLOBIN 11.9 g/dL (14.0-18.0); LYMPH # 0.6 (1.2-3.4); LYMPH % 22.5 % (22.0-35.0); MEAN CELL VOLUME 95.2 fl (80.0-105.0); MEAN CORPUSCULAR HEMOGLOBIN 33.6 pg (25.0-35.0); MEAN CORPUSCULAR HGB CONC 35.3 g/dl (31.0-37.0); MEAN PLATELET VOLUME 10.4 fl (7.0-11.0); MONO # 0.2 (0.1-0.6); MONO % 9.2 % (1.0-6.0); RBC 3.54 10^6/uL (3.5-6.1); RED CELL DISTRIBUTION WIDTH 14.2 % (11.5-14.5)
[2017-06-08 12:44] LABS: WHITE BLOOD COUNT 2.6 10^3/ul (4.5-11.0)
--- NOTE | 2017-06-08 12:44 | CARD ---
APPROVED REPORT EXAM: Two-dimensional and M-mode echocardiogram with Doppler and color Doppler. INDICATION 2D DIMENSIONS Left Atrium (2D)3.5 (1.6-4.0cm)IVSd0.8 (0.7-1.1cm) LVDd6.1 (3.9-5.9cm)LVOT Diameter2.5 (1.8-2.4cm) PWd1.4 (0.7-1.1cm)LVDs4.3 (2.5-4.0cm) FS (%) 29.6 %LVEF (%)55.8 (>50%) M-Mode DIMENSIONS Aortic Root4.10 (2.2-3.7cm)Aortic Cusp Exc.2.50 (1.5-2.0cm) Aortic Valve AoV Peak Obpaaktf525.0cm/sAoV VTI29.0cmAO Peak GR.13mmHg LVOT Peak Fucserrv30.0cm/sLVOT VTI13.20cmAO Mean GR.7mmHg AGATHA (VMAX)2.77sx3TOQ (VTI)2.60ae2IP P 1/2 Bpqg425su Mitral Valve MV E Uqyqyebc31.3cm/sMV A Lxyhifrt61.4cm/sE/A ratio0.6 TDI Lateral E' Peak V11.40cm/sMedial E' Peak V4.87cm/sE/Lateral E'4.5 E/Medial E'10.5 Tricuspid Valve TR Peak Jbbgokku600ja/sRAP LCMGPWKP45vhJkUM Peak Gr.29mmHg YSLB11dzMn LEFT VENTRICLE The left ventricle is normal size. There is normal left ventricular wall thickness. The left ventricular ejection fraction is within the normal range. Septal hypokinesis Transmitral Doppler flow pattern is Grade I-abnormal relaxation pattern. RIGHT VENTRICLE The right ventricle is normal size. There is normal right ventricular wall thickness. The right ventricular systolic function is normal. ATRIA The left atrium size is normal. The right atrium size is normal. AORTIC VALVE The aortic valve is mildly thickened. There is severe aortic regurgitation. There is no aortic valvular stenosis. MITRAL VALVE The mitral valve is mildly thickened. Mitral regurgitation is trace. TRICUSPID VALVE There is mild tricuspid regurgitation. There is mild pulmonary hypertension. PULMONIC VALVE There is moderate pulmonic valvular regurgitation. GREAT VESSELS The aortic root is mildly enlarged. PERICARDIAL EFFUSION There is a trace loculated posterior pericardial effusion. <Conclusion> The left ventricle is normal size. There is normal left ventricular wall thickness. The left ventricular ejection fraction is within the normal range. Septal hypokinesis Transmitral Doppler flow pattern is Grade I-abnormal relaxation pattern. There is severe aortic regurgitation. There is mild tricuspid regurgitation. There is mild pulmonary hypertension. There is moderate pulmonic valvular regurgitation.
[2017-06-08 12:52] LABS: ALB/GLOB RATIO 1.1 (1.1-1.8); ALBUMIN 2.8 g/dL (3.0-4.8); ALT/SGPT 154 U/L (7-56); AMYLASE 109 U/L (35-125); AST/SGOT 433 U/L (17-59); BLOOD UREA NITROGEN 11 mg/dL (7-21); CALCIUM 8.5 mg/dL (8.4-10.5); GFR AFRICAN-AMERICAN > 60; GFR NON-AFRICAN AMERICAN > 60; HDL CHOLESTEROL 24 mg/dL (29-60); LIPASE 542 U/L (23-300)
[2017-06-08 13:00] LABS: LDL CHOLESTEROL 57 mg/dL (0-129)
[2017-06-08 13:03] LABS: TROPONIN I 0.07 ng/mL
[2017-06-08 13:24] LABS: HEPATITIS B SURFACE AG Negative (NEGATIVE)
[2017-06-08 13:29] LABS: HEPATITIS A IGM NEGATIVE (NEGATIVE); HEPATITIS B CORE AB NEGATIVE (NEGATIVE)
[2017-06-08 14:53] LABS: HEPATITIS C ANTIBODY NEGATIVE (NEGATIVE)
--- NOTE | 2017-06-08 18:18 | CP.PCM.CON ---
History of Present Illness - History of Present Illness History of Present Illness: 51 year old male with PMH of HTN, S/P heart valve replacement, CAD S/P CABG, alcoholism came in to [facility] initially in need of medical clearance, since he is looking to join a program for alcoholism and depression. He states that he has not been feeling weel and is complaining of occasional palpitations and epigastric pain for about a week a now. He has occasional nausea but no vomiting , no diarrhea, no fever or chills, no headache or dizziness, no chest pain, no SOB, no rhinorrhea, no cough, no dysuria. CT scan of the abdomen and pelvis as well as ultrasound of the abdomen are suggestive of gallbladder disease. Infectious Diseases consult is requested to further evaluate and manage. Review of Systems - Review of Systems All systems: reviewed and no additional remarkable complaints except (as per HPI ) Past Patient History - Past Social History Smoking Status: Light Smoker < 10 Cigarettes Daily - CARDIAC Hx Hypertension: Yes - PULMONARY Hx Respiratory Disorders: No - NEUROLOGICAL Hx Neurological Disorder: No - HEENT Hx HEENT Problems: No - RENAL Hx Chronic Kidney Disease: No - ENDOCRINE/METABOLIC Hx Endocrine Disorders: No - HEMATOLOGICAL/ONCOLOGICAL Hx Blood Disorders: No - INTEGUMENTARY Hx Dermatological Problems: No - MUSCULOSKELETAL/RHEUMATOLOGICAL Hx Musculoskeletal Disorders: No Hx Falls: No - GASTROINTESTINAL Hx Gastrointestinal Disorders: No - GENITOURINARY/GYNECOLOGICAL Hx Genitourinary Disorders: No - PSYCHIATRIC Hx Anxiety: Yes Hx Depression: Yes - SURGICAL HISTORY Hx Surgeries: Yes - ANESTHESIA Hx Anesthesia: Yes Hx Anesthesia Reactions: No Meds Allergies/Adverse Reactions: Allergies Allergy/AdvReac Type Severity Reaction Status Date / Time Penicillins Allergy Verified 04/28/17 10:58 - Medications Medications: Current Medications Meropenem (Merrem Iv 1 Gm Premix) 50 mls @ 100 mls/hr IVPB Q8 [facility] PRN Reason: Protocol Stop: 06/17/17 06:01 Last Admin: 06/08/17 05:57 Dose: 100 mls/hr Vancomycin HCl (Vancomycin 1gm) 1 gm in 250 mls @ 167 mls/hr IVPB Q12H [facility] PRN Reason: Protocol Stop: 06/15/17 23:01 Last Admin: 06/07/17 23:24 Dose: 167 mls/hr Lactated Ringer's (Lactated Ringer's) 1,000 mls @ 100 mls/hr IV .Q10H [facility] Physical Exam - Constitutional Appears: Chronically Ill - Head Exam Head Exam: NORMAL INSPECTION - Neck Exam Neck exam: Positive for: Meningismus - Respiratory Exam Respiratory Exam: Decreased Breath Sounds - Cardiovascular Exam Cardiovascular Exam: +S1, +S2 - GI/Abdominal Exam GI & Abdominal Exam: Soft, Tenderness (epigastric, mild). absent: Guarding, Rebound, Rigid Results - Vital Signs Recent Vital Signs: Last Vital Signs Temp 97.8 F 06/08/17 02:11 Pulse 96 H 06/08/17 02:11 Resp 19 06/08/17 02:11 BP 124/60 06/08/17 02:11 Pulse Ox 98 06/08/17 01:44 - Labs Result Diagrams: 06/08/17 11:00 06/08/17 12:30 Assessment & Plan - Assessment and Plan (Free Text) Plan: Assessment R/O acute cholecystitis R/O choledocholelithiasis with associated pancreatitis HTN S/P heart valve replacement CAD S/P CABG alcoholism Plan Started the patient on Vancomycin and Merrem and will follow up blood cx; follow up MRCP results and further recommendations of Surgery and GI will monitor clinically
--- NOTE | 2017-06-08 19:32 | CARD ---
APPROVED REPORT EKG Measurement Heart Arav24LAYC AL [id number] <Conclusion> Normal sinus rhythm Possible Left atrial enlargement Left ventricular hypertrophy with repolarization abnormality Abnormal ECG
[2017-06-08] MEDS ORDERED: Multivitamin (MVI) 10 ML, Thiamine 100 MG, Folic Acid 1 MG in Sodium Chloride 0.9% 1,00... IV SCH (20:07)
--- NOTE | 2017-06-08 20:37 | CP.PCM.PCO ---
Physician Communication Note - Physician Communication Note Physician Communication Note: LUQ-Rib pain NOT GB/ETOH Hepatitis-DT/No surgery recmmended
[2017-06-08] MEDS ORDERED: Multivitamin (MVI) 10 ML, Thiamine 100 MG, Folic Acid 1 MG in Sodium Chloride 0.9% 1,00... IV ONE (22:19)
--- NOTE | 2017-06-08 22:43 | PN ---
DATE: SUBJECTIVE: The patient denies chest pain or shortness of breath. He is experiencing abdominal discomfort. PHYSICAL EXAMINATION: VITAL SIGNS: Blood pressure 115/62, heart rate 86, temperature 99.2, respirations 20. HEENT: Normocephalic. CHEST: Clear. HEART: S1 and S2 regular. Grade III/ early diastolic murmur over left sternal border as well as the right sternal border. ABDOMEN: Mild right subcostal tenderness. EXTREMITIES: No edema. LABORATORY DATA: SMA-7: Sodium 132, potassium 3.6, chloride 93, CO2 of 33, glucose 138, BUN 11, creatinine 0.8. Alkaline phosphatase 268, AST and ALT are 433 and 154 respectively. Triglycerides 710, total cholesterol 273, HDL cholesterol 24, LDL cholesterol 57, lipase today is 542. Urine drug screen is negative. Today's hemoglobin and hematocrit 11.9 and 33.7, white count 2.6, platelet count 84,000. Abdomen and pelvis CT scan: Gallbladder distention measuring 12 cm with gallstones and gallbladder wall thickening and pericholecystic fluid suspicious of acute cholecystitis. Abdomen ultrasound revealed gallstones and sludge with the gallbladder wall thickening and pericholecystic fluid suspicious of acute cholecystitis. MRCP was performed, the report is still pending. Echocardiography study revealed normal left ventricular size, wall thickness and ejection fraction. There is septal hypokinesis, severe aortic and pulmonic insufficiency and mild pulmonary hypertension. ASSESSMENT: 1. Acute cholecystitis with cholelithiasis. 2. Acute pancreatitis. 3. Ethyl alcohol abuse and hepatitis. 3. Status post valve replacement with a cadaver valve. The patient does not recall which valve that was replaced and that could not be clarified by the patient's transthoracic echocardiogram. 4. Severe aortic and pulmonic insufficiency. RECOMMENDATIONS: Continue current IV meropenem at 1 g every 8 hours and IV vancomycin 1 g every 12 hours. If surgery is planned, the patient can undergo cholecystectomy from the cardiac point of view with postoperative ICU monitoring. Further cardiac workup will be deferred until after recovery from the patient's acute cholecystitis and acute pancreatitis. Fernando Rubio MD
--- NOTE | 2017-06-09 00:17 | CON ---
DATE: 06/08/2017 PULMONARY CONSULT REFERRING PHYSICIAN: Naima Stokes MD. REASON FOR CONSULTATION: Chronic lung disease, has a gallstone with probably cholecystitis. HISTORY OF PRESENT ILLNESS: This is a 51-year-old gentleman with a cardiac history including coronary artery bypass surgery, also has a history of valve replacement, hypertension, history of excessive alcohol use. Came in to ER with palpitation, epigastric pain lasting almost 1 week. CAT scan of the abdomen showed distended gallbladder with gallstones, possible cholecystitis. He is n.p.o. Seen by Surgery, also seen by GI. MRCP is done, report is pending. Is short of breath with minimal exertion. No nausea at present. No leg pain. No leg swelling. Does have abdominal pain. PAST MEDICAL HISTORY: Coronary artery disease, history of coronary bypass surgery, history of valve replacement, hypertension, COPD, excessive alcohol use. ALLERGY: PENICILLIN. SOCIAL HISTORY: He is a smoker. Has a history of alcohol abuse. FAMILY HISTORY: No significant cardiopulmonary disease reported. MEDICATIONS: He is on lactate Ringer's 100 mL/hour, meropenem 1 g IV every 8 hours, vancomycin 1 g IV every 12 hours. REVIEW OF SYSTEMS: No headache, no rhinitis. Mild cough. No chest pain, abdominal pain. No leg pain. No leg swelling. PHYSICAL EXAMINATION: GENERAL: Lying in the bed, no acute distress. VITAL SIGNS: Temperature is 98, heart rate is 82, respiratory rate is 20, blood pressure 115/54, pulse ox 98% on room air. HEENT: Moist mucous membrane. Crowded airway. NECK: Supple. No JVD. LUNGS: Have a few scattered rhonchi. HEART: S1 and S2. ABDOMEN: Distended. Diffuse tenderness. EXTREMITIES: There is no edema. NEUROLOGICAL: Awake and alert. Follows simple commands. LABORATORY DATA: Shows hemoglobin 11.9, hematocrit 33.7, WBC 2.6, platelet is 84. INR 1.03. Sodium 132, potassium 3.6, chloride 93, bicarbonate 33, BUN 11, creatinine 0.8, glucose 138, calcium 8.5, total bili 4.5, AST 433, ALT 154, alk phos is 168. Troponin 0.07. Albumin is 2.8. Cholesterol is 273, amylase is 109, lipase is 542, procalcitonin 0.81. Blood alcohol level was 12 on admission. Has a CAT scan of the abdomen done, which showed enlarged gallbladder, almost 12 cm with gallstone, suggestive of cholecystitis. Also had a chest x-ray done, which shows no infiltrate or effusion. IMPRESSION AND PLAN: Cholecystitis with probably cholelithiasis, coronary artery disease, history of coronary bypass surgery, history of valve replacement, alcohol abuse, chronic obstructive lung disease, elevated liver enzymes. We will start the patient on inhaled bronchodilator, also start thiamine 200 mg three times a day. We will give IV. The patient is n.p.o. Ativan 1 mg IV every 2 hours p.r.n. for withdrawal. Follow up labs in the morning. Thank you and we will follow with you. Kranthi Ace MD
[2017-06-09] MEDS: Meropenem IV 1 gm in NS 50 ML IVPB SCH ×3 (06:05→22:22)
[2017-06-09] MEDS: Lactated Ringer's 1,000 ML IV SCH (06:06)
[2017-06-09 08:03] LABS: HEMOGLOBIN 11.1 g/dL (14.0-18.0); MEAN CELL VOLUME 96.7 fl (80.0-105.0); MEAN CORPUSCULAR HEMOGLOBIN 33.7 pg (25.0-35.0); MEAN CORPUSCULAR HGB CONC 34.9 g/dl (31.0-37.0); RBC 3.29 10^6/uL (3.5-6.1); RED CELL DISTRIBUTION WIDTH 14.6 % (11.5-14.5); WHITE BLOOD COUNT 3.1 10^3/ul (4.5-11.0)
[2017-06-09 08:29] LABS: ALB/GLOB RATIO 0.9 (1.1-1.8); ALBUMIN 2.3 g/dL (3.0-4.8); ALT/SGPT 123 U/L (7-56); AST/SGOT 318 U/L (17-59); BLOOD UREA NITROGEN 10 mg/dL (7-21); CALCIUM 8.2 mg/dL (8.4-10.5); GFR AFRICAN-AMERICAN > 60; GFR NON-AFRICAN AMERICAN > 60
--- NOTE | 2017-06-09 08:36 | CP.PCM.PN ---
Subjective - Date & Time of Evaluation Date of Evaluation: 06/09/17 Time of Evaluation: 08:33 - Subjective Subjective: General Surgery: Dr Deluna Pt S&E. NAEO. Reports he has still epigastric pain, however it his improved. Denies any n/v, f/c. Tolerating diet. Continuing to have intermittent tremors. Objective - Vital Signs/Intake and Output Vital Signs (last 24 hours): Temp Pulse Resp BP Pulse Ox 98.2 F 94 H 18 119/55 L 96 06/09/17 06:00 06/09/17 06:00 06/09/17 06:00 06/09/17 06:00 06/09/17 06:00 Intake and Output: 06/09/17 06/09/17 06:59 18:59 Intake Total 1800 Output Total 400 Balance 1400 - Medications Medications: Current Medications Meropenem (Merrem Iv 1 Gm Premix) 50 mls @ 100 mls/hr IVPB Q8 MICKEY PRN Reason: Protocol Stop: 06/17/17 06:01 Last Admin: 06/09/17 06:05 Dose: 100 mls/hr Vancomycin HCl (Vancomycin 1gm) 1 gm in 250 mls @ 167 mls/hr IVPB Q12H MICKEY PRN Reason: Protocol Stop: 06/15/17 23:01 Last Admin: 06/08/17 22:08 Dose: 167 mls/hr Lactated Ringer's (Lactated Ringer's) 1,000 mls @ 100 mls/hr IV .Q10H MICKEY Last Admin: 06/09/17 06:06 Dose: Not Given Lorazepam (Ativan) 1 mg IVP Q6H PRN; Protocol PRN Reason: Anxiety Last Admin: 06/08/17 22:09 Dose: 1 mg Pantoprazole Sodium (Protonix Inj) 40 mg IVP DAILY [facility] Thiamine HCl (Vitamin B1 Tab) 200 mg PO DAILY MICKEY - Labs Labs: 06/09/17 07:00 06/09/17 07:00 PT 11.8 SECONDS (9.4-12.5) 06/07/17 19:33 INR 1.03 (0.93-1.08) 06/07/17 19:33 - Constitutional Appears: Non-toxic, No Acute Distress - ENT Exam ENT Exam: Mucous Membranes Moist - Respiratory Exam Respiratory Exam: absent: Accessory Muscle Use, Respiratory Distress - Cardiovascular Exam Cardiovascular Exam: REGULAR RHYTHM. absent: Tachycardia - GI/Abdominal Exam GI & Abdominal Exam: Soft, Tenderness (epigastric ). absent: Distended, Firm, Guarding, Rigid - Neurological Exam Neurological Exam: Alert, Awake, Oriented x3 - Psychiatric Exam Psychiatric exam: Normal Affect, Normal Mood - Skin Skin Exam: Normal Color, Warm Assessment and Plan - Assessment and Plan (Free Text) Assessment: 51M with abdominal pain; likely passed stone Plan: cont regular diet awaiting MRCP read pt at risk for DTs Tbili trending down cont hydration, prn benzos no surgical intervention planned d/w Dr Mikie Austin, PGY3
--- NOTE | 2017-06-09 10:39 | HP ---
DATE OF EXAM: CHIEF COMPLAINT: Chest pain, abdominal pain. HISTORY OF PRESENT ILLNESS: Shimon Ramírez is a 51-year-old male came to the emergency department, accompanied with family requesting medical clearance. Patient report that he required medical clearance to be able to join 30-day residential program for alcoholism and depression. Patient states he has not been feeling well for the past week. He noticed of feeling fatigue, which is affecting his work. Family want patient to start the program, but patient feels he is not strong enough. Patient reports the history of heart valve replacement in 1994 and has not had any cardiac followup since. He admits he drinks alcohol, dizzy due to feeling anxious and hearing his heart skip a beat. Patient reports being seen by a physician who prescribed him antidepressant with no improvement. At this time, he was also informed about patient is having enlarged heart, but has not followed up with recommendation of the specialist. Patient denies any fever, chills, nausea, vomiting but having abdominal pain. We admitted the patient with electrocardiogram, chest x-ray, CAT scan of the abdomen and pelvis, MRCP done also done today, abdominal ultrasound done, seen by Dr. Clifford Deluna, surgeon, Dr. Mohan Mcconnell, legal administrator, Dr. Simone Hall, Infectious Disease, all consults called. Discussion done with the patient's sister, who is siting on the bedside. PAST MEDICAL HISTORY: As above. Hypertension, valve replacement, coronary artery bypass graft. FAMILY HISTORY: Father and mother noncontributory. HABITS: Heavy smoker, more than 10 cigarettes per day. Alcohol, yes. Substance abuse, no. ALLERGIES: PATIENT IS ALLERGIC WITH PENICILLIN. REVIEW OF SYSTEMS: Patient is seen and examined at the bedside. Sister was sitting on the bedside also. No nausea, vomiting or diarrhea. No hematuria or hematochezia. No swelling of the leg. No chest pain. No palpitation at this moment. No headache. No dizziness. PHYSICAL EXAMINATION: VITAL SIGNS: Temperature 98.5, pulse 117, respiratory rate 18, blood pressure 144/68, pulse oximetry 96%. HEENT: Head: Normocephalic, atraumatic. Eyes: PERRLA. Extraocular muscles intact. Conjunctivae are clear. Nose patent. Mucous membranes moist. NECK: Supple. No carotid bruit. No JVD or thyromegaly. CHEST: Bilaterally symmetrical. HEART: S1 and S2 positive. LUNGS: Clear to auscultation. ABDOMEN: Soft. Bowel sounds present. No organomegaly. EXTREMITIES: No edema. No cyanosis. NEUROLOGICAL: Patient is awake, alert. Moving all four extremities. No focal deficits. LABORATORY DATA: White blood cells 4, hemoglobin 11.3, hematocrit 33.4, platelets 110. Sodium 124, potassium 3.9, BUN 18, creatinine 0.7. Glucose 184. ASSESSMENT AND PLAN: Mr. Shimon Ramírez is a 51-year-old male with leukopenia, anemia, thrombocytopenia, actually pancytopenia, hyponatremia, hypokalemia, hyperglycemia, hypochloremia, multiple electrolyte imbalance, corrected in ER. CAT scan of the abdomen and pelvis done . Patient has a gallbladder distension measuring 12 cm with gallstones, gallbladder wall thickening and pericholecystic fluid suspicious of acute cholecystitis, moderate free pelvic fluid. Abdominal ultrasound is done by Dr. Deluna, left lower quadrant rib pain, not gallbladder/ethanol, rule out hepatitis, rule out DT according to Dr. Deluna of Surgery. Seen by infectious Disease, Dr. Simone Hall. Patient has history of hypertension, status post heart valve replacement, coronary artery disease, status post coronary artery bypass graft, alcoholism. Patient had pancreatitis. Start the patient on vancomycin and Merrem and we will follow up blood cultures. Seen by Dr. Mohan Mcconnell. The patient has history of depression also. Elevated liver function test, maybe due to alcoholism, hepatitis, rule out autoimmune and viral etiology, rule out common bile duct stone.. Monitoring the liver function test , urge to quit alcohol consumption. Continue hydration. Diet as tolerated. Seen by the pantry steward/stewardess, Dr. Fernando Rubio pantry steward/stewardess. Repeat labs. Gastrointestinal and deep venous thrombosis prophylaxis. Repeat labs. We will follow up. Naima Stokes MD MTDD
--- NOTE | 2017-06-09 10:52 | CP.PCM.PN ---
<Naman Salazar - Last Filed: 06/09/17 10:55> Subjective - Date & Time of Evaluation Date of Evaluation: 06/09/17 Time of Evaluation: 06:45 - Subjective Subjective: PGY4 GI Initial Conult Pt seen and examined bedside No complaints Denies any abd pain tolerating diet +BM ROS: 12 point ROS conducted, neg other than above Objective - Vital Signs/Intake and Output Vital Signs (last 24 hours): Temp Pulse Resp BP Pulse Ox 98.2 F 94 H 18 119/55 L 96 06/09/17 06:00 06/09/17 06:00 06/09/17 06:00 06/09/17 06:00 06/09/17 06:00 Intake and Output: 06/09/17 06/09/17 06:59 18:59 Intake Total 1800 Output Total 400 Balance 1400 - Medications Medications: Current Medications Meropenem (Merrem Iv 1 Gm Premix) 50 mls @ 100 mls/hr IVPB Q8 MICKEY PRN Reason: Protocol Stop: 06/17/17 06:01 Last Admin: 06/09/17 06:05 Dose: 100 mls/hr Lactated Ringer's (Lactated Ringer's) 1,000 mls @ 100 mls/hr IV .Q10H MICKEY Last Admin: 06/09/17 06:06 Dose: Not Given Potassium Chloride (Potassium Chloride 20 Meq/100 Ml) 20 meq in 100 mls @ 50 mls/hr IVPB ONCE ONE Stop: 06/09/17 12:19 Lorazepam (Ativan) 1 mg IVP Q6H PRN; Protocol PRN Reason: Anxiety Last Admin: 06/08/17 22:09 Dose: 1 mg Pantoprazole Sodium (Protonix Inj) 40 mg IVP DAILY MICKEY Last Admin: 06/09/17 09:54 Dose: 40 mg Thiamine HCl (Vitamin B1 Tab) 200 mg PO DAILY MICKEY Last Admin: 06/09/17 09:54 Dose: 200 mg - Labs Labs: 06/09/17 07:00 06/09/17 07:00 PT 11.8 SECONDS (9.4-12.5) 06/07/17 19:33 INR 1.03 (0.93-1.08) 06/07/17 19:33 - Constitutional Appears: Well, No Acute Distress - Head Exam Head Exam: ATRAUMATIC, NORMOCEPHALIC - Eye Exam Eye Exam: Scleral icterus - ENT Exam ENT Exam: Mucous Membranes Moist, Normal Exam - Neck Exam Neck Exam: Normal Inspection - Respiratory Exam Respiratory Exam: Clear to Ausculation Bilateral, NORMAL BREATHING PATTERN. absent: Prolonged Expiratory Phase, Rales, Rhonchi, Respiratory Distress - Cardiovascular Exam Cardiovascular Exam: REGULAR RHYTHM, +S1, +S2 - GI/Abdominal Exam GI & Abdominal Exam: Soft, Normal Bowel Sounds - Extremities Exam Extremities Exam: absent: Joint Swelling, Pedal Edema - Neurological Exam Neurological Exam: Alert, Awake, Oriented x3 - Psychiatric Exam Psychiatric exam: Normal Affect, Normal Mood - Skin Skin Exam: Dry, Intact, Normal Color, Warm Assessment and Plan - Assessment and Plan (Free Text) Assessment: Shimon Ramírez is a 51M w/ hx of [facility] who presents to the Er for ETOH detox. He was found to have Acute cholecystitis and possible pancreatitis Acute Cholecystitis Cholelithiasis Transaminemia, DDx: 2/2 above, vs alcoholic hepatitis; r/o autoimmune and viral etiology, r/o CBD stone Plan: -MRI reviewed, waiting on final radiology read -Hep viral etiology neg -monitor LFTs, INR -avoid alcohol consumption -surgury on board -diet as tolerated, low fat -continue Iv hydration -if MRCP + for stone, will plan for ERCP D/W Dr. Bolton <Aniceto Bolton - Last Filed: 06/09/17 11:31> Objective - Vital Signs/Intake and Output Vital Signs (last 24 hours): Temp Pulse Resp BP Pulse Ox 98.2 F 94 H 18 119/55 L 96 06/09/17 06:00 06/09/17 06:00 06/09/17 06:00 06/09/17 06:00 06/09/17 06:00 Intake and Output: 06/09/17 06/09/17 06:59 18:59 Intake Total 1800 Output Total 400 Balance 1400 - Medications Medications: Current Medications Meropenem (Merrem Iv 1 Gm Premix) 50 mls @ 100 mls/hr IVPB Q8 MICKEY PRN Reason: Protocol Stop: 06/17/17 06:01 Last Admin: 06/09/17 06:05 Dose: 100 mls/hr Lactated Ringer's (Lactated Ringer's) 1,000 mls @ 100 mls/hr IV .Q10H MICKEY Last Admin: 06/09/17 06:06 Dose: Not Given Potassium Chloride (Potassium Chloride 20 Meq/100 Ml) 20 meq in 100 mls @ 50 mls/hr IVPB ONCE ONE Stop: 06/09/17 12:19 Lorazepam (Ativan) 1 mg IVP Q6H PRN; Protocol PRN Reason: Anxiety Last Admin: 06/08/17 22:09 Dose: 1 mg Pantoprazole Sodium (Protonix Inj) 40 mg IVP DAILY MICKEY Last Admin: 06/09/17 09:54 Dose: 40 mg Thiamine HCl (Vitamin B1 Tab) 200 mg PO DAILY MICKEY Last Admin: 06/09/17 09:54 Dose: 200 mg - Labs Labs: 06/09/17 07:00 06/09/17 07:00 PT 11.8 SECONDS (9.4-12.5) 06/07/17 19:33 INR 1.03 (0.93-1.08) 06/07/17 19:33 Attending/Attestation - Attestation I have personally seen and examined this patient.: Yes I have fully participated in the care of the patient.: Yes I have reviewed all pertinent clinical information, including history, physical exam and plan: Yes Notes (Text): 06/09/17 11:28 51 year old male with h/o etoh abuse admitted with abdominal pain ,jaundice, gallstones. Overall clinical presentation is consistent with alcoholic hepatitis. Would recommend etoh cessation. Nutritional support. Await MRCP result. Rene owen 11. NO indication for steroids. Abx for possible cholecystitis.
--- NOTE | 2017-06-09 14:04 | MRI ---
EXAM: MR Abdomen Without Intravenous Contrast MRCP with MIP reformatted images CLINICAL HISTORY: 51 years old, male; Signs and symptoms; Other: Abdominal pain; Additional info: Elevated tbili R/O choledocho TECHNIQUE: Multiplanar magnetic resonance images of the abdomen without intravenous contrast. MRCP with MIP reformatted images are submitted. COMPARISON: No relevant prior studies available. FINDINGS: Artifacts: Limited due to motion and misregistration artifacts. Lung bases: Unremarkable. No mass. No consolidation. Pleural space: Trace bilateral pleural effusions. Liver: Enlarged fatty liver. Gallbladder and bile ducts: There is gallbladder distention measuring 12.5 cm with gallbladder wall thickening gallbladder sludge and gallstones and pericholecystic fluid suspicious for acute cholecystitis. No intra-or extrahepatic common bile duct dilatation is noted. The evaluation of common bile duct is limited due to artifact seen on image 54 series 7. However no common bile duct dilatation or stone is identified. Pancreas: Unremarkable. No ductal dilation. Spleen: Unremarkable. No splenomegaly. Adrenals: Unremarkable. No mass. Kidneys and ureters: Tiny hyperintensity in the left kidney seen on image 17 series 4 this nodule characterize No hydronephrosis. Stomach and bowel: There are nonspecific fluid filled stomach, small bowel loops. These findings can represent ileus versus gastroenteritis/enteritis versus slow transit versus peristalsis. No obstruction. Intraperitoneal space: Small amount of upper abdomen intraperitoneal fluid. Bones/joints: There are sternal wires consistent with previous sternotomy incision with blooming artifact. Soft tissues: Unremarkable. Vasculature: Unremarkable. No abdominal aortic aneurysm. Lymph nodes: Unremarkable. No enlarged lymph nodes. IMPRESSION: 1. Small amount of upper abdomen intraperitoneal fluid. 2. There is gallbladder distention measuring 12.5 cm with gallbladder wall thickening gallbladder sludge and gallstones and pericholecystic fluid suspicious for acute cholecystitis. 3. No common bile duct dilatation no common duct stones.
--- NOTE | 2017-06-09 14:17 | PN ---
DATE: 06/09/2017 SUBJECTIVE: The patient is seen earlier this morning in 269, bed 2. He is comfortable, uneventful night. PHYSICAL EXAMINATION: VITAL SIGNS: Temperature is 98, blood pressure is 119/50, respiratory rate of 16. HEENT: Examination of HEENT is unremarkable. NECK: Supple. LUNGS: Have decreased breath sounds. HEART: Normal S1, S2. ABDOMEN: Soft. LABORATORY DATA: Laboratory examination reveals a white count of 3.1, hemoglobin of 11, platelets of 85. Coagulation is noted. Chemistries reveals a BUN of 10, creatinine of 0.9, procalcitonin of 0.8. Urinalysis is noted. Blood cultures are negative. Review of orders reveals the patient to be on meropenem and vancomycin. Dr. Deluna' note report from yesterday is reviewed. Dr. Ace's consultation from yesterday is reviewed. The review of cultures revealed blood cultures on 06/07/2017 is negative in growth, and blood cultures from 04/28/2017, the one previous to that is negative. ASSESSMENT AND PLAN: A 51-year-old male, seen earlier this morning in 269, bed 2 with hypertension; status post heart valve replacement; coronary artery disease, status post coronary artery bypass graft; alcoholism and looking for program in alcoholism and depression and with initially tachycardia, heart rate of up to 117 and white count of 2.6 yesterday and 3.1 today with sepsis with acute cholecystitis versus choledocholithiasis associated with pancreatitis, hypertension and status post heart valve replaced, and blood cultures are negative in a patient with alcoholism, coronary artery disease and coronary artery bypass graft. We will discontinue the vancomycin. Review of the CAT scan reveals the patient has gallbladder distention 12 cm with gallstone, bladder wall thickening and suspicious for acute cholecystitis with LFT elevations, which appears to be improving, lipase of 600, upper range is 300, does not quite meet criteria for pancreatitis. It should be 3 times the upper range of lipase. CAT scan of the pancreas is unremarkable. The patient had an MRCP, results are not available. Dr. Mcconnell's consultation from yesterday is reviewed. GI consult found to have acute cholecystitis. We will follow with you. Alexei Sagastume MD [facility] # [id number]
--- NOTE | 2017-06-09 14:57 | PN ---
DATE: 06/09/2017 PULMONARY PROGRESS NOTE REFERRING PHYSICIAN: Naima Stokes MD. SUBJECTIVE: He is lying in the bed, head at 45 degrees. Night was unremarkable. No headache, no rhinitis. Gets anxious at times. Mild abdominal pain. No dysuria, leg pain, or leg swelling. PHYSICAL EXAMINATION: GENERAL: In no acute distress. VITAL SIGNS: Temperature is 98, heart rate is 94, respiratory rate is 18, blood pressure 119/55, pulse ox 96% on room air. HEENT: Moist mucous membrane. No ulcer or thrush noted. NECK: Supple. No JVD. LUNGS: Have a fair airflow with rhonchi. HEART: S1 and S2. ABDOMEN: Positive bowel sounds. Mild distended and tenderness. EXTREMITIES: No edema. NEUROLOGICAL: Awake and alert. Follows simple command. MEDICATIONS: He is on Ativan 1 mg IV every 6 hours p.r.n., also IV fluids 100 mL per hour, Merrem 1 g IV every 8 hours, Protonix 40 mg daily, and vitamin B1 200 mg daily. LABORATORY DATA: Shows hemoglobin 11.1, hematocrit 31.3, WBC 3.1, platelet is 85. Sodium 137, potassium 2.3, chloride 101, bicarbonate is 30, BUN is 10, creatinine is 0.9, glucose 127, calcium is 8.2. Total bilirubin is 3.4, AST 318, ALT 123, alkaline phosphatase is 200, albumin is 2.3, lipase is 542, amylase 109. Microbiology: Blood culture has been negative. IMPRESSION AND PLAN: Cholecystitis with probably chololithiasis, coronary artery disease, history of coronary artery bypass surgery, history of valve replacement, alcohol abuse, chronic obstructive lung disease, elevated liver enzymes which is slowly improving, hypokalemia. We will replace potassium. Continue p.r.n. Ativan. Continue thiamine. We will follow with GI and Surgery. MRCP report is still pending. Delirium tremens precautions. Thank you and we will follow with you. Kranthi Ace MD
--- NOTE | 2017-06-09 16:56 | PN ---
DATE: 06/09/2017 CARDIOLOGY FOLLOWUP (For Dr. Rubio) SUBJECTIVE: The patient is awake, alert, sitting up, no shortness of breath noted. PHYSICAL EXAMINATION: VITAL SIGNS: Blood pressure is 119/55. The heart rate is in the 90s. NECK: Negative JVD. LUNGS: Bilateral rhonchi. HEART: Reveals 3/6 systolic and diastolic murmur. EXTREMITIES: Without edema. LABORATORY DATA: Hemoglobin is 11.1 and white count of 3.1. BUN and creatinine are normal. LFTs are elevated, but improving. IMPRESSION: 1. Alcoholic hepatitis. 2. Cholecystitis. 3. Alcohol withdrawal. 4. History of aortic valve replacement. 5. Severe aortic insufficiency. PLAN: Given these findings, the patient is recovering from his alcohol toxicity. There are no immediate plans for abdominal surgery at this time. Once that is recovered, we will need to consider . Shimon Orta MD
--- NOTE | 2017-06-09 19:49 | PN ---
DATE: SUBJECTIVE: Patient is seen and examined at bedside, looking comfortable, sleepy, arousable. No fever. No chills. No nausea, vomiting, or diarrhea. No hematuria or hematochezia. No swelling of the legs. No chest pain or palpitations. No headache. No dizziness. PHYSICAL EXAMINATION: VITAL SIGNS: Temperature 98, heart rate 94, respiratory rate 18, blood pressure 120/50, pulse oximetry 98% on room air. HEENT: Head: Normocephalic, atraumatic. Eyes: PERRLA. Extraocular muscles intact. Conjunctivae are clear. Nose: Patent. Mucous membranes moist. NECK: Supple. No carotid bruit. No JVD or thyromegaly. CHEST: Bilaterally symmetrical. HEART: S1 and S2 positive. LUNGS: Clear to auscultation. ABDOMEN: Soft. Bowel sounds present. No organomegaly. EXTREMITIES: No edema. No cyanosis. NEUROLOGICAL: Patient is awake, alert. Moving all four extremities. No focal deficits. MEDICATIONS: Ativan, IV fluid, Merrem, Protonix, vitamin B1. LABORATORY DATA: Hemoglobin 11.1, hematocrit 31.3, white blood cells 3.1, platelets 85. Sodium 157, potassium 2.7, BUN 11, creatinine 0.9, glucose 127. Total bilirubin is 3.4, AST 318, lipase 542. Blood cultures had been negative. ASSESSMENT AND PLAN: Mr. Shimon Ramírez is a 51-year-old male with cholecystitis with probably cholelithiasis, coronary artery disease, history of coronary artery bypass surgery, history of valve replacement, alcoholic abuse, chronic obstructive lung disease, elevated liver enzyme which is slowly improving, hypokalemia. Electrolyte imbalance, we replaced that. Continue Ativan, thiamine, banana bag. Repeat labs. MRCP report is still pending. Delirium tremens precautions, seizure precautions, fall precautions. According to MRCP report, small amount of upper abdomen intraperitoneal fluid. There is gallbladder distention measuring 12.5 cm with the gallbladder wall thickening. Gallbladder sludge and gallstones and pericholecystic fluid, suspicious for acute cholecystitis; no common bile duct dilatation and co common bile duct stones. We will continue present treatment. We will follow up. Naima Stokes MD [facility] # [id number]
[2017-06-10] MEDS: Meropenem IV 1 gm in NS 50 ML IVPB SCH ×3 (05:16→22:11)
[2017-06-10] MEDS: Pantoprazole 40 mg EC Tab PO SCH (05:17)
[2017-06-10] MEDS: Lactated Ringer's 1,000 ML IV SCH ×2 (05:20→13:52)
[2017-06-10 07:37] LABS: ALB/GLOB RATIO 0.9 (1.1-1.8); ALBUMIN 2.2 g/dL (3.0-4.8); ALT/SGPT 106 U/L (7-56); AST/SGOT 233 U/L (17-59); BLOOD UREA NITROGEN 10 mg/dL (7-21); CALCIUM 8.4 mg/dL (8.4-10.5); GFR AFRICAN-AMERICAN > 60; GFR NON-AFRICAN AMERICAN > 60
--- NOTE | 2017-06-10 10:31 | CP.PCM.PN ---
<Naman Salazar - Last Filed: 06/10/17 10:32> Subjective - Date & Time of Evaluation Date of Evaluation: 06/10/17 Time of Evaluation: 08:00 - Subjective Subjective: PGY4 GI Follow-up Pt seen and examined bedside No complaints Denies any abd pain tolerating diet +BM ROS: 12 point ROS conducted, neg other than above Objective - Vital Signs/Intake and Output Vital Signs (last 24 hours): Temp Pulse Resp BP Pulse Ox 98.1 F 81 18 114/50 L 96 06/10/17 06:00 06/10/17 06:00 06/10/17 06:00 06/10/17 06:00 06/10/17 06:00 Intake and Output: 06/10/17 06/10/17 06:59 18:59 Intake Total 1500 Balance 1500 - Medications Medications: Current Medications Meropenem (Merrem Iv 1 Gm Premix) 50 mls @ 100 mls/hr IVPB Q8 MICKEY PRN Reason: Protocol Stop: 06/17/17 06:01 Last Admin: 06/10/17 05:16 Dose: 100 mls/hr Lactated Ringer's (Lactated Ringer's) 1,000 mls @ 100 mls/hr IV .Q10H [facility] Last Admin: 06/10/17 05:20 Dose: 100 mls/hr Lorazepam (Ativan) 1 mg IVP Q6H PRN; Protocol PRN Reason: Anxiety Last Admin: 06/09/17 22:21 Dose: 1 mg Pantoprazole Sodium (Protonix Ec Tab) 40 mg PO 0600 [facility] Last Admin: 06/10/17 05:17 Dose: 40 mg Thiamine HCl (Vitamin B1 Tab) 200 mg PO DAILY [facility] Last Admin: 06/10/17 09:34 Dose: 200 mg - Labs Labs: 06/09/17 07:00 06/10/17 06:30 PT 11.8 SECONDS (9.4-12.5) 06/07/17 19:33 INR 1.03 (0.93-1.08) 06/07/17 19:33 - Constitutional Appears: Well, No Acute Distress - Head Exam Head Exam: ATRAUMATIC, NORMOCEPHALIC - Eye Exam Eye Exam: Normal appearance. absent: Scleral icterus - ENT Exam ENT Exam: Mucous Membranes Moist, Normal Exam - Neck Exam Neck Exam: Normal Inspection - Respiratory Exam Respiratory Exam: Clear to Ausculation Bilateral, NORMAL BREATHING PATTERN. absent: Rales, Rhonchi, Wheezes, Respiratory Distress - GI/Abdominal Exam GI & Abdominal Exam: Soft, Normal Bowel Sounds. absent: Distended, Firm, Guarding, Rigid, Tenderness, Organomegaly, Rebound - Extremities Exam Extremities Exam: absent: Joint Swelling, Pedal Edema - Neurological Exam Neurological Exam: Alert, Awake, Oriented x3 - Psychiatric Exam Psychiatric exam: Normal Affect, Normal Mood - Skin Skin Exam: Dry, Intact, Normal Color, Warm Assessment and Plan - Assessment and Plan (Free Text) Assessment: Shimon Ramírez is a 51M w/ hx of [facility] who presents to the Er for ETOH detox. He was found to have Acute cholecystitis and possible pancreatitis Acute Cholecystitis Cholelithiasis Transaminemia, DDx: 2/2 above, vs alcoholic hepatitis; r/o autoimmune and viral etiology, r/o CBD stone Plan: -MRI reviewed, waiting on final radiology read -Hep viral etiology neg -monitor LFTs, INR -avoid alcohol consumption -surgury on board -diet as tolerated, low fat -MRCP neg for CBD stone -LFTs tending down -recommend outpt follow-up w/ GI (Dr. Rosado) D/W Dr. Bolton <Aniceto Bolton - Last Filed: 06/10/17 17:12> Objective - Vital Signs/Intake and Output Vital Signs (last 24 hours): Temp Pulse Resp BP Pulse Ox 98.7 F 75 19 94/51 L 96 06/10/17 12:00 06/10/17 14:00 06/10/17 12:00 06/10/17 12:00 06/10/17 06:00 Intake and Output: 06/10/17 06/10/17 06:59 18:59 Intake Total 1500 Balance 1500 - Medications Medications: Current Medications Meropenem (Merrem Iv 1 Gm Premix) 50 mls @ 100 mls/hr IVPB Q8 MICKEY PRN Reason: Protocol Stop: 06/17/17 06:01 Last Admin: 06/10/17 14:20 Dose: 100 mls/hr Lorazepam (Ativan) 1 mg IVP Q6H PRN; Protocol PRN Reason: Anxiety Last Admin: 06/10/17 16:01 Dose: 1 mg Pantoprazole Sodium (Protonix Ec Tab) 40 mg PO 0600 [facility] Last Admin: 06/10/17 05:17 Dose: 40 mg Thiamine HCl (Vitamin B1 Tab) 200 mg PO DAILY [facility] Last Admin: 06/10/17 09:34 Dose: 200 mg - Labs Labs: 06/09/17 07:00 06/10/17 06:30 PT 11.8 SECONDS (9.4-12.5) 06/07/17 19:33 INR 1.03 (0.93-1.08) 06/07/17 19:33 Attending/Attestation - Attestation I have personally seen and examined this patient.: Yes I have fully participated in the care of the patient.: Yes I have reviewed all pertinent clinical information, including history, physical exam and plan: Yes Notes (Text): 06/10/17 17:11 51 year old male admitted with alcoholic hepatitis. LFTs improving. No indication for steroids. No evidence of choledocholithiasis on MRCP. Management of possible cholecystitis per surgery. will sign off.
--- NOTE | 2017-06-10 11:20 | CP.PCM.PN ---
Subjective - Date & Time of Evaluation Date of Evaluation: 06/10/17 Time of Evaluation: 11:14 - Subjective Subjective: Surgery: Dr. Deluna Pt seen and examined. Resting comfortably in bed. Has intermittent abd pain, overall improved. Objective - Vital Signs/Intake and Output Vital Signs (last 24 hours): Temp Pulse Resp BP Pulse Ox 98.1 F 81 18 114/50 L 96 06/10/17 06:00 06/10/17 06:00 06/10/17 06:00 06/10/17 06:00 06/10/17 06:00 Intake and Output: 06/10/17 06/10/17 06:59 18:59 Intake Total 1500 Balance 1500 - Medications Medications: Current Medications Meropenem (Merrem Iv 1 Gm Premix) 50 mls @ 100 mls/hr IVPB Q8 MICKEY PRN Reason: Protocol Stop: 06/17/17 06:01 Last Admin: 06/10/17 05:16 Dose: 100 mls/hr Lactated Ringer's (Lactated Ringer's) 1,000 mls @ 100 mls/hr IV .Q10[facility] Last Admin: 06/10/17 05:20 Dose: 100 mls/hr Lorazepam (Ativan) 1 mg IVP Q6H PRN; Protocol PRN Reason: Anxiety Last Admin: 06/09/17 22:21 Dose: 1 mg Pantoprazole Sodium (Protonix Ec Tab) 40 mg PO 0600 [facility] Last Admin: 06/10/17 05:17 Dose: 40 mg Thiamine HCl (Vitamin B1 Tab) 200 mg PO DAILY [facility] Last Admin: 06/10/17 09:34 Dose: 200 mg - Labs Labs: 06/09/17 07:00 06/10/17 06:30 PT 11.8 SECONDS (9.4-12.5) 06/07/17 19:33 INR 1.03 (0.93-1.08) 06/07/17 19:33 - Constitutional Appears: Non-toxic, No Acute Distress - Head Exam Head Exam: ATRAUMATIC, NORMOCEPHALIC - Eye Exam Eye Exam: EOMI - ENT Exam ENT Exam: Mucous Membranes Moist - Respiratory Exam Respiratory Exam: NORMAL BREATHING PATTERN. absent: Accessory Muscle Use, Respiratory Distress - GI/Abdominal Exam GI & Abdominal Exam: Soft. absent: Distended, Firm, Guarding, Rigid, Tenderness - Extremities Exam Extremities Exam: absent: Calf Tenderness, Pedal Edema - Neurological Exam Neurological Exam: Alert, Awake, Oriented x3 - Psychiatric Exam Psychiatric exam: Normal Affect, Normal Mood Assessment and Plan - Assessment and Plan (Free Text) Assessment: 51M w. abd pain, improved -U/S and MRCP suggestive of cholecystitis -will order HIDA -c/w current management -will d/w attending Zemaitis PGY3
--- NOTE | 2017-06-10 19:17 | PN ---
DATE: SUBJECTIVE: Patient's abdominal pain has subsided. He denies any vomiting. No recent chest pain or no shortness of breath. OBJECTIVE: VITAL SIGNS: Blood pressure 94/51, heart rate 75, temperature 98.7, respirations 19. HEENT: Normocephalic. CHEST: Clear. HEART: S1, S2 regular. Grade 3/6 early diastolic murmur over left sternal border. ABDOMEN: Soft. EXTREMITIES: No edema. LABORATORY DATA: Yesterday's hemoglobin and hematocrit is 11.1 and 31.8, white count 3.1, platelet count 85,000. Today's SMA-7 is within normal limits except for glucose of 115 and anion gap of 9. Today's alkaline phosphatase is 106, ALT is 233. MRCP reported small amount of upper abdominal intraperitoneal fluid. There is gallbladder distention measuring 12.5 cm with gallbladder wall thickening, gallbladder sludge and gallstones, and pericholecystic fluid, suspicious for acute cholecystitis. ASSESSMENT: 1. Acute cholecystitis and pancreatitis. 2. Ethyl alcohol abuse. 3. Improving cholestasis. 4. Improved hypokalemia. 5. Status post a valve replacement. 6. Severe aortic insufficiency. RECOMMENDATIONS: Continue current IV meropenem, continue thiamine 200 mg once a day. Continue Protonix 40 mg once a day. Further cardiac work workup for the aortic valve should wait until complete management of the patient's acute calculus cholecystitis is done. Fernando Rubio MD
[2017-06-10] MEDS: Albuterol-Ipratrop 3 mg / 0.5 (3 ml) UD IH SCH (19:34)
--- NOTE | 2017-06-10 23:05 | PN ---
DATE: 06/10/2017 PULMONARY PROGRESS NOTE REFERRING PHYSICIAN: Naima Stokes MD. SUBJECTIVE: The patient is lying in the bed, head at 45 degrees. Family is at the bedside. Night was unremarkable. He feels better. Still has some abdominal pain. Could not sleep well last night. No leg pain or leg swelling. OBJECTIVE: GENERAL: In no acute distress. VITAL SIGNS: Temperature is 98, heart rate is 75, respiratory rate is 18, blood pressure 94/51, pulse ox 96% on room air. HEENT: Moist mucous membrane. Crowded airway. NECK: Supple. No JVD. LUNGS: Have few scattered rhonchi. HEART: S1 and S2. ABDOMEN: Soft, nontender. No organomegaly. Does have still tenderness. There is some guarding on abdominal palpation. EXTREMITIES: There is no edema. NEUROLOGIC: Awake, alert,follows simple commands. MEDICATIONS: He is on Ativan 1 mg every 6 hours p.r.n.,meropenem 1 g IV every 8 hours, Protonix 40 mg daily,vitamin B1 of 200 mg daily. LABORATORY DATA: Shows hemoglobin of 11.1. Sodium is 141, potassium 4.1, chloride 104, bicarbonate 32. BUN 10, creatinine is 1.1, glucose 115, calcium is 8.4. Total bilirubin 2.7, AST 233, ALT 106, alk phos is 172, albumin is 2.2. Microbiology: Blood culture has been negative. IMPRESSION AND PLAN: Cholecystitis, also having gallstone, coronary artery disease, history of coronary bypass surgery, valve replacement, alcohol abuse, chronic obstructive lung disease, elevated liver enzyme, which is slowly improving. Pulmonary point of view, doing much better. Spoke to family at bedside. All the questions answered. We will continue Ativan on a p.r.n. basis. We will recommend to continue thiamine or Betaxin as tolerated. Being followed by GI, Infectious Disease and Surgery. Add inhaled bronchodilators on a p.r.n. basis. Urged patient to stop excessive alcohol use. Urged to stop smoking. Thank you and we will follow with you. Kranthi Ace MD
--- NOTE | 2017-06-11 02:29 | PN ---
DATE: 06/10/2017 SUBJECTIVE: Patient is in bed, in no acute distress. PHYSICAL EXAMINATION VITAL SIGNS: Temperature is 98, blood pressure is 94/50, respiratory rate is 18. HEENT: Unremarkable. NECK: Supple. LUNGS: Have decreased breath sounds. HEART: Normal S1, S2. ABDOMEN: Soft, nontender. LABORATORY DATA: Reveals a white count of 3.1, hemoglobin of 11, platelets of 85. Chemistries reveal a BUN of 10, creatinine of 1.1. LFTs are noted to elevated. Urinalysis is noted. Serology; HIV is negative, blood cultures are no growth. MEDICATIONS: Reveals the patient to be on meropenem. ASSESSMENT AND PLAN: A 51-year-old male, seen earlier this morning in room 659, bed 2, with a history of hypertension, status post heart valve replacement, coronary artery disease status post coronary artery bypass graft, alcoholism, initially admitted with tachycardia and leukopenia with sepsis with acute cholecystitis versus cholelithiasis associated with pancreatitis. Currently on meropenem. Patient had a Gastroenterology evaluation. progress note from today is reviewed. progress note is also reviewed. Waiting for HIDA scan result on meropenem. Alexei Sagastume MD
[2017-06-11] MEDS: Albuterol-Ipratrop 3 mg / 0.5 (3 ml) UD IH SCH ×4 (04:12→19:32)
[2017-06-11] MEDS: Meropenem IV 1 gm in NS 50 ML IVPB SCH ×3 (05:11→21:11)
[2017-06-11] MEDS: Pantoprazole 40 mg EC Tab PO SCH (05:12)
[2017-06-11 07:18] LABS: ALB/GLOB RATIO 0.9 (1.1-1.8); ALBUMIN 2.3 g/dL (3.0-4.8); ALT/SGPT 104 U/L (7-56); AST/SGOT 189 U/L (17-59); BLOOD UREA NITROGEN 9 mg/dL (7-21); CALCIUM 8.2 mg/dL (8.4-10.5); GFR AFRICAN-AMERICAN > 60; GFR NON-AFRICAN AMERICAN > 60
--- NOTE | 2017-06-11 07:36 | CP.PCM.PN ---
Subjective - Date & Time of Evaluation Date of Evaluation: 06/11/17 Time of Evaluation: 07:31 - Subjective Subjective: Surgery Progress Note: Patient seen and assessed at bedside. Patient resting comfortably in bed. Patient denies fevers, chills, chest pain, SOB, abdominal pain, N/V/D/C or changes in urine output. Objective - Vital Signs/Intake and Output Vital Signs (last 24 hours): Temp Pulse Resp BP Pulse Ox 98.0 F 84 20 120/56 L 98 06/11/17 06:00 06/11/17 06:00 06/11/17 06:00 06/11/17 06:00 06/11/17 06:00 Intake and Output: 06/11/17 06/11/17 06:59 18:59 Intake Total 200 Output Total 0 Balance 200 - Medications Medications: Current Medications Albuterol/Ipratropium (Duoneb 3 Mg/0.5 Mg (3 Ml) Ud) 3 ml IH [id number] [facility] Last Admin: 06/11/17 04:12 Dose: Not Given Meropenem (Merrem Iv 1 Gm Premix) 50 mls @ 100 mls/hr IVPB Q8 [facility]KEY PRN Reason: Protocol Stop: 06/17/17 06:01 Last Admin: 06/11/17 05:11 Dose: 100 mls/hr Lorazepam (Ativan) 1 mg IVP Q6H PRN; Protocol PRN Reason: Anxiety Last Admin: 06/10/17 22:10 Dose: 1 mg Pantoprazole Sodium (Protonix Ec Tab) 40 mg PO 0600 [facility] Last Admin: 06/11/17 05:12 Dose: 40 mg Thiamine HCl (Vitamin B1 Tab) 200 mg PO DAILY [facility] Last Admin: 06/10/17 09:34 Dose: 200 mg - Labs Labs: 06/09/17 07:00 06/11/17 05:45 PT 11.8 SECONDS (9.4-12.5) 06/07/17 19:33 INR 1.03 (0.93-1.08) 06/07/17 19:33 - Constitutional Appears: Non-toxic, No Acute Distress - Head Exam Head Exam: ATRAUMATIC, NORMOCEPHALIC - Eye Exam Eye Exam: EOMI, Normal appearance - Neck Exam Neck Exam: Full ROM - Respiratory Exam Respiratory Exam: NORMAL BREATHING PATTERN. absent: Accessory Muscle Use, Prolonged Expiratory Phase, Respiratory Distress - GI/Abdominal Exam GI & Abdominal Exam: Soft, Normal Bowel Sounds. absent: Distended, Firm, Guarding, Rigid, Tenderness, Rebound - Neurological Exam Neurological Exam: Alert, Awake, Oriented x3 - Psychiatric Exam Psychiatric exam: Normal Affect, Normal Mood - Skin Skin Exam: Dry, Intact, Normal Color, Warm Assessment and Plan - Assessment and Plan (Free Text) Assessment: 51 year old male who presented with abdominal pain; Pain improved since admission Plan: -U/S and MRCP suggestive of cholecystitis -F/U HIDA scan today -C/W current management -Will discuss with attending Benny Robison PGY1
--- NOTE | 2017-06-11 10:59 | PN ---
DATE: 06/10/2017 SUBJECTIVE: The patient is a 51-year-old male. Patient was seen and examined at bedside on 06/10/2017. I am doing a progress note for 06/10/2017. Sister was sitting on the bedside. Also, the patient was resting, awake, still having some abdominal pain, especially in the epigastric area and having tremors. According to the patient did not sleep well last night, but daytime he slept. No swelling of the legs. No chest pain. No fever, no chills. No nausea, vomiting or diarrhea. PHYSICAL EXAMINATION: VITAL SIGNS: Temperature 98, heart rate 75, respiratory rate 18, blood pressure 94/51, pulse oximetry 96% on room air. HEENT: Head: Normocephalic, atraumatic. Eyes: PERRLA. Extraocular muscles intact. Conjunctivae are clear. Nose patent. Mucous membranes moist. NECK: Supple. No carotid bruit. No JVD or thyromegaly. LUNGS: Have scattered rhonchi. HEART: S1 and S2 positive. ABDOMEN: Soft, nontender. No organomegaly. Bowels have still tenderness. EXTREMITIES: No edema. No cyanosis. NEUROLOGICAL: Patient is awake, alert. Following simple commands. MEDICATIONS: Ativan, meropenem, Protonix, vitamin B1. LABORATORY DATA: Hemoglobin 11.1. Sodium 141, potassium 4.1, BUN 10, creatinine 1.1, glucose 115, calcium 8.1, AST 233, ALT 116. Blood cultures negative. ASSESSMENT AND PLAN: Mr. Shimon Ramírez is a 51-year-old male who has abnormal liver function tests, cholecystitis, cholelithiasis, coronary artery disease, history of coronary artery bypass surgery, valve replacement, alcohol abuser, chronic obstructive pulmonary disease. Liver function tests improving, but very slowly. Length of time discussion done with the patient's sister. All questions answered. The patient is on Ativan and thiamine on p.r.n. basis. Infectious Disease and Surgery is on the case. According to the surgeon, the patient do not need surgery, was getting antibiotics. Discussion done with the family about quitting smoking and alcohol. History of hypertension, tachycardia, history of leukopenia, has sepsis. The patient is on meropenem. Gastrointestinal and deep venous thrombosis prophylaxis. We will follow up. Naima Stokes MD [facility] # [id number]
--- NOTE | 2017-06-11 11:52 | PN ---
DATE: SUBJECTIVE: The patient denies any chest pain or shortness of breath. PHYSICAL EXAMINATION: VITAL SIGNS: Blood pressure 120/66, heart rate 84, temperature 98, respirations 20. HEENT: Normocephalic. CHEST: Clear. HEART: S1 and S2 regular. Grade III/ early diastolic murmur over left sternal border. ABDOMEN: Soft. EXTREMITIES: No edema. LABORATORY DATA: Hemoglobin and hematocrit 11.1 and 31.8, white count 3.1, platelet count 85,000 that was 2 days ago. Today, SMA-7 is within normal limit. AST and ALT are 104 and 155 respectively. HIDA scan was performed; however, the report is still pending. ASSESSMENT: 1. Acute calculus cholecystitis. 2. Improved pancreatitis. 3. Ethyl alcohol abuse. 4. Severe aortic insufficiency. 5. Thrombocytopenia and mild anemia. RECOMMENDATIONS: Continue current Ativan 1 mg intravenously every 6 hours for anxiety. Continue IV meropenem at 1 g every 8 hours. Continue oral Protonix 40 mg once a day. Thiamine at 200 mg once a day. I will follow HIDA scan report. Fernando Rubio MD
--- NOTE | 2017-06-11 12:06 | NM ---
PROCEDURE: Nuclear Medicine Hepatobiliary Scan HISTORY: r/o cholecystitis COMPARISON: 06/08/2017 abdominal ultrasound Summary of findings on the comparison examination: Gallstones and sludge with gallbladder wall thickening and pericholecystic fluid suspicious for acute cholecystitis. 06/08/2017 MRCP Summary of findings on the comparison examination: There is gallbladder distention measuring 12.5 cm with gallbladder wall thickening gallbladder sludge and gallstones and pericholecystic fluid suspicious for acute cholecystitis. TECHNIQUE: 5.9 mCi of technetium 99m Mebrofenin was administered intravenously. Planar images of the abdomen were obtained at 5 min intervals to 60 mins. Delayed images were also obtained. FINDINGS: LIVER: Timely and homogenous uptake. COMMON BILE DUCT: identified at 5 mins. GALLBLADDER: identified at 5 mins. SMALL BOWEL: Identified at 30 print mins. IMPRESSION: Normal Hepatobiliary Scan. The cystic duct is patent.
--- NOTE | 2017-06-11 18:34 | CP.PCM.PCO ---
Physician Communication Note - Physician Communication Note Physician Communication Note: +Viz GB(HIDA)/Cons Rx for now
--- NOTE | 2017-06-11 19:41 | CP.PCM.PN ---
Subjective - Date & Time of Evaluation Date of Evaluation: 06/11/17 Time of Evaluation: 10:05 - Subjective Subjective: No fevers, better abdominal pain, no diarrhea, no nausea currently. Objective - Vital Signs/Intake and Output Vital Signs (last 24 hours): Temp Pulse Resp BP Pulse Ox 98.3 F 98 H 19 147/66 98 06/11/17 17:30 06/11/17 18:00 06/11/17 17:30 06/11/17 17:30 06/11/17 06:00 Intake and Output: 06/11/17 06/12/17 18:59 06:59 Intake Total 50 Balance 50 - Medications Medications: Current Medications Albuterol/Ipratropium (Duoneb 3 Mg/0.5 Mg (3 Ml) Ud) 3 ml IH [id number] [facility] Last Admin: 06/11/17 19:32 Dose: 3 ml Meropenem (Merrem Iv 1 Gm Premix) 50 mls @ 100 mls/hr IVPB Q8 [facility]KEY PRN Reason: Protocol Stop: 06/17/17 06:01 Last Admin: 06/11/17 13:10 Dose: 100 mls/hr Lorazepam (Ativan) 1 mg IVP Q6H PRN; Protocol PRN Reason: Anxiety Last Admin: 06/11/17 17:53 Dose: 1 mg Pantoprazole Sodium (Protonix Ec Tab) 40 mg PO 0600 [facility] Last Admin: 06/11/17 05:12 Dose: 40 mg Thiamine HCl (Vitamin B1 Tab) 200 mg PO DAILY [facility] Last Admin: 06/11/17 10:49 Dose: 200 mg - Labs Labs: 06/09/17 07:00 06/11/17 05:45 PT 11.8 SECONDS (9.4-12.5) 06/07/17 19:33 INR 1.03 (0.93-1.08) 06/07/17 19:33 - Constitutional Appears: Non-toxic, Chronically Ill - Head Exam Head Exam: NORMAL INSPECTION - Neck Exam Neck Exam: absent: Meningismus - Respiratory Exam Respiratory Exam: Decreased Breath Sounds - Cardiovascular Exam Cardiovascular Exam: +S1, +S2 - GI/Abdominal Exam GI & Abdominal Exam: Soft. absent: Tenderness Assessment and Plan - Assessment and Plan (Free Text) Plan: Assessment R/O sepsis from acute cholecystitis with associated pancreatitis HTN S/P heart valve replacement CAD S/P CABG alcoholism Plan continue Merrem day 4; blood cx are negative; MRCP suggests acute cholecystitis but HIDA scan does not - follow up further recommendations of surgery will continue to monitor clinically
--- NOTE | 2017-06-11 22:30 | PN ---
DATE: 06/11/2017 PULMONARY PROGRESS NOTE REFERRING PHYSICIAN: Dr. Naima Stokes. SUBJECTIVE: He is lying in the bed, head at 45 degrees. Still has some tremor and agitated. Abdominal pain is better. Tolerated clear liquids. No nausea. No leg pain or leg swelling. PHYSICAL EXAMINATION: GENERAL: In no acute distress. VITAL SIGNS: Temperature is 98, heart rate 98, respiratory rate 20, blood pressure 147/66, pulse ox 98% on room air. HEENT: Moist mucous membrane. No ulcer or thrush noted. NECK: Supple. No JVD. LUNGS: Have a fair airflow with rhonchi. HEART: S1 and S2. ABDOMEN: Positive bowel sounds. Still has some mild tenderness. EXTREMITIES: There is no edema. NEUROLOGIC: Awake, alert, and follow simple commands. MEDICATIONS: He is on Ativan 1 mg every 6 hours p.r.n., DuoNeb every 6 hours, meropenem 1 g IV every 8 hours, Protonix 40 mg daily, vitamin B1 at 200 mg daily. LABORATORY DATA: Reviewed, noted sodium 142, potassium of 3.6, chloride 104, bicarbonate 31, BUN 9, creatinine 0.9, glucose is 94, calcium is 8.2. AST 189, ALT 104, alk phos is 155, albumin is 2.3. Has a HIDA scan done today. It shows normal hepatobiliary scan. Cystic duct is patent. IMPRESSION AND PLAN: Cholecystitis, has a gallstone, coronary artery disease, history of coronary artery bypass surgery, valve replacement, alcohol abuse, chronic obstructive lung disease, elevated liver enzymes which is slowly improving. Started on clear liquid diet, oral antibiotics, continue bronchodilator, continue Ativan for withdrawals, also continue thiamine. Follow up liver function tests in the morning. Thank you and we will follow with you. Kranthi Ace MD
[2017-06-11 23:42] VITALS: RESP 20
[2017-06-12] MEDS: Albuterol-Ipratrop 3 mg / 0.5 (3 ml) UD IH SCH ×4 (01:58→20:45)
--- NOTE | 2017-06-12 02:47 | PN ---
DATE: SUBJECTIVE: The patient is a 51-year-old male. Patient is seen and examined on the bedside, sleepy, arousable. No fever. No chills. No nausea, vomiting, diarrhea. No hematuria. No hematochezia. No swelling of the legs. No chest pain. No palpitation. Still complaining epigastric pain. PHYSICAL EXAMINATION: VITAL SIGNS: Temperature 98.3, pulse 98, respiratory rate 19, blood pressure , pulse oximetry 98%. HEENT: Head: Normocephalic, atraumatic. Eyes: PERRLA. Extraocular movements are intact. Conjunctivae are clear. Nose patent. Mucous membranes are moist. NECK: Supple. No carotid bruit. No JVD or thyromegaly. CHEST: Bilaterally symmetrical. HEART: S1 and S2 positive. LUNGS: Clear to auscultation. ABDOMEN: Soft. Tender in the epigastric area. EXTREMITIES: No edema. No cyanosis. NEUROLOGIC: Patient is awake, alert. Follows simple command. MEDICATIONS: Albuterol, meropenem, Ativan, Protonix, thiamine. LABORATORY DATA: White blood cells 3.1, hemoglobin 11.1, hematocrit 31.8, platelets 85. Sodium 142, potassium 3.6, BUN 9, creatinine 0.9. Glucose 94. ASSESSMENT AND PLAN: Mr. Shimon Ramírez is a 51-year-old male with leukopenia, anemia, thrombocytopenia, practically pancytopenia, pain with sepsis, acute cholecystitis versus associated with pancreatitis, hypertension, status post heart valve replacement, coronary artery disease, status post coronary artery bypass graft and history of alcoholism. According to Infectious Disease, continue Merrem on day 4. Blood cultures are negative. Magnetic resonance cholangiopancreatography suggests acute cholecystitis but HIDA scan does not. We will follow up further recommendation by the Surgery. Continue present treatment as per Infectious Disease. Appreciated report from Dr. Clifford Deluna. Getting tapering dose of Ativan.
[2017-06-12] MEDS: Meropenem IV 1 gm in NS 50 ML IVPB SCH ×2 (06:46→13:27)
[2017-06-12] MEDS: Pantoprazole 40 mg EC Tab PO SCH (06:46)
[2017-06-12 07:31] LABS: ALB/GLOB RATIO 0.9 (1.1-1.8); ALBUMIN 2.5 g/dL (3.0-4.8); ALT/SGPT 101 U/L (7-56); AST/SGOT 164 U/L (17-59); BLOOD UREA NITROGEN 10 mg/dL (7-21); CALCIUM 8.1 mg/dL (8.4-10.5); GFR AFRICAN-AMERICAN > 60; GFR NON-AFRICAN AMERICAN > 60
--- NOTE | 2017-06-12 15:52 | PN ---
DATE: SUBJECTIVE: The patient has mild abdominal pain. No nausea or vomiting today. PHYSICAL EXAMINATION: VITAL SIGNS: Blood pressure 139/61, heart rate 88, temperature 98.4, respirations 20. HEENT: Normocephalic. CHEST: Clear. HEART: S1 and S2 regular. EXTREMITIES: No edema. LABORATORY DATA: Today's SMA-7: Sodium 141, potassium 3.6, chloride 104, CO2 32, glucose 102, BUN 10, creatinine 0.9. Today's AST and ALT are 164 and 101 respectively. Alkaline phosphatase is 154, slight improvement compared to yesterday. HIDA scan normal. The cystic duct is patent. Blood cultures negative after 4 days. ASSESSMENT: 1. Calculus cholecystitis. 2. Severe aortic insufficiency. 3. Neutropenia and thrombocytopenia. 4. Ethyl alcohol abuse. RECOMMENDATIONS: Continue current IV meropenem at 1 g every 8 hours. Continue Protonix 40 mg once a day, thiamine 200 mg once a day, Ativan 0.5 mg intravenous every 6 hours. Further cardiac workup should be delayed until the patient's complete recovery from his calculus cholecystitis. Fernando Rubio MD
--- NOTE | 2017-06-12 22:41 | PN ---
DATE: 06/12/2017 SUBJECTIVE: Patient is seen earlier this morning in 269, bed 2. PHYSICAL EXAMINATION: VITAL SIGNS: Temperature is 98, blood pressure is 139/60, respiratory rate of 18. HEENT: Examination of HEENT is unremarkable. NECK: Supple. LUNGS: Have decreased breath sounds. HEART: Normal S1, S2. ABDOMEN: Soft and nontender. LABORATORY DATA: Reveals the patient's white count of 3.1 and hemoglobin of 11. Chemistries reveal the patient's BUN of 10 and creatinine of 0.9. AST is 164, ALT of 101. Procalcitonin is 0.81. HIV is negative. Microbiology reveals the blood cultures have no growth. Review of orders reveals the patient to be on meropenem. Dr. Stokes's note is reviewed. ASSESSMENT AND PLAN: He is a 51-year-old male with sepsis, acute cholecystitis and associated pancreatitis, hypertension, status post heart valve replacement, coronary artery disease, status post coronary artery bypass graft, and alcoholism. Day number 5 of meropenem. Cultures negative. MRCP suggests acute cholelithiasis, but HIDA scan does not. We will discuss with GI and Surgery. Alexei Sagastume MD
[2017-06-13] MEDS: Albuterol-Ipratrop 3 mg / 0.5 (3 ml) UD IH SCH ×3 (03:35→14:34)
--- NOTE | 2017-06-13 03:57 | PN ---
DATE: 06/12/2017 PULMONARY PROGRESS NOTE REFERRING PHYSICIAN: Naima Stokes MD SUBJECTIVE: He is out of bed to chair, still has tremors, feels nervous, tolerated diet well. Mild abdominal pain. No chest pain. No leg pain or leg swelling. OBJECTIVE: GENERAL: In no acute distress. VITAL SIGNS: Temperature is 98, heart rate is 85, respiratory rate is 20, blood pressure 149/72. HEENT: Moist mucous membrane. No ulcer or thrush noted. NECK: Supple. No JVD. LUNGS: Has fair airflow with rhonchi. HEART: S1 and S2. ABDOMEN: Positive bowel sounds. Mild tenderness. EXTREMITIES: There is no edema. NEUROLOGIC: Awake and alert, follows simple command. MEDICATIONS: He is on Ativan 0.5 mg every 8 hours p.r.n., DuoNeb every 6 hours, mag oxide 400 mg twice a day, meropenem 1 g every 8 hours, calcium plus vitamin D daily, Protonix 40 mg daily, vitamin B1 at 200 mg daily. LABORATORY DATA: Shows sodium 141, potassium 3.6, chloride 104, bicarbonate 32, BUN 10, creatinine 0.9, glucose 102, calcium is . AST 164, ALT 101, alk phos is 154, albumin is 2.5. Microbiology: Blood cultures have been negative. IMPRESSION AND PLAN: Cholecystitis, gallstone, coronary artery disease, history of coronary artery bypass surgery, history of valve replacement, alcohol abuse, chronic obstructive lung disease, elevated liver enzyme which is improving, alcohol withdrawal. Ativan was decreased . Patient has no shaking and nervousness. Increase Ativan back to every 6 hours. We will get TCU evaluation. Fall precaution. Continue antibiotics. Follow up labs in the morning. Thank you and we will follow with you. Kranthi Ace MD
--- NOTE | 2017-06-13 05:07 | PN ---
DATE: SUBJECTIVE: The patient was seen and examined at the bedside, looking comfortable. Today he is less sleepy. Abdominal pain is better, mild epigastric pain. No nausea, vomiting or diarrhea. No hematuria or hematochezia. No swelling of the legs. No chest pain. No palpitation. No headache. No dizziness. No fever. No chills. PHYSICAL EXAMINATION: VITAL SIGNS: Blood pressure 139/____, heart rate 88, temperature 98.4, respiratory rate 20. HEENT: Head normocephalic, atraumatic. Eyes PERRLA. Extraocular muscles intact. Conjunctivae clear. Nose patent. Mucous membrane moist. NECK: Supple. No carotid bruit. No JVD or thyromegaly. CHEST: Bilaterally symmetrical. HEART: S1 and S2 positive. LUNGS: Clear to auscultation. ABDOMEN: Soft. Bowel sounds positive. EXTREMITIES: No edema. No cyanosis. NEUROLOGIC: The patient is awake and alert. Moving all 4 extremities. No focal deficits. MEDICATIONS: Ativan, DuoNeb, Merrem, Protonix, vitamin B1. LABORATORY DATA: White blood cells 3.1, hemoglobin 11.1, hematocrit 31.8, platelets 85. Sodium 141, potassium 3.6, BUN 10, creatinine 0.9, calcium 8.1. ASSESSMENT AND PLAN: Mr. 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 We will continue meropenem. Continue Protonix, thiamine, Ativan tapering doses. We will replace the calcium, magnesium, and we will start the medications for hypercholesterolemia and hypertriglyceridemia. Repeat labs. Out of bed, physical therapy. We will follow. Naima Stokes MD
[2017-06-13] MEDS: Meropenem IV 1 gm in NS 50 ML IVPB SCH ×2 (05:16→13:21)
[2017-06-13] MEDS: Pantoprazole 40 mg EC Tab PO SCH (05:16)
[2017-06-13 05:58] VITALS: O2SAT 94
[2017-06-13 06:50] LABS: ALBUMIN 2.6 g/dL (3.0-4.8); ALT/SGPT 96 U/L (7-56); AST/SGOT 132 U/L (17-59); BLOOD UREA NITROGEN 8 mg/dL (7-21); CALCIUM 8.2 mg/dL (8.4-10.5); GAMMA GLUTAMYL TRANSPEPTIDASE 567 U/L (8-78); GFR AFRICAN-AMERICAN > 60; GFR NON-AFRICAN AMERICAN > 60; HDL CHOLESTEROL 32 mg/dL (29-60); LIPASE 227 U/L (23-300)
[2017-06-13 06:58] LABS: HEMOGLOBIN 9.7 g/dL (14.0-18.0); MEAN CORPUSCULAR HEMOGLOBIN 33.4 pg (25.0-35.0); MEAN CORPUSCULAR HGB CONC 33.8 g/dl (31.0-37.0); MEAN PLATELET VOLUME 10.2 fl (7.0-11.0); RBC 2.9 10^6/uL (3.5-6.1); RED CELL DISTRIBUTION WIDTH 17.4 % (11.5-14.5); WHITE BLOOD COUNT 5.1 10^3/ul (4.5-11.0)
[2017-06-13 07:01] LABS: LDL CHOLESTEROL 161 mg/dL (0-129)
[2017-06-13] MEDS ORDERED: Calcium-Vit D 250 mg-125 Units Tab UD PO SCH (10:00)
[2017-06-13] MEDS ORDERED: Magnesium Oxide 400 mg Tab UD PO SCH (10:00)
--- NOTE | 2017-06-13 10:49 | CON ---
LOCATION: Room 269 HISTORY OF PRESENT ILLNESS: This is a 51-year-old male with known history of hypertension and significant cardiac vasculopathy, presenting here with generalized body weakness and progressively worsening upper abdominal pain and was actually seeking medical clearance for admission to an alcoholic rehab unit and was found to have acute pancreatitis with underlying acute cholecystitis and possible choledocholithiasis. He is being referred now for endocrine evaluation with underlying marked dyslipidemia and elevated liver transaminases. PAST MEDICAL HISTORY: As mentioned above, history of hypertensive cardiovascular disease and dyslipidemia, history of coronary artery disease with a previous coronary artery bypass graft surgery, also has history of heart valve replacement and has been otherwise stable from the cardiac viewpoint. FAMILY HISTORY: Positive for hypertension and diabetes. SOCIAL HISTORY: The patient admits to chronic alcoholism and is a light smoker till the present time. No other known illicit drug use. REVIEW OF SYSTEMS: As mentioned above. Admits to generalized body weakness with intermittent bouts of dizziness and lightheadedness, worse in the last 2 to 3 days prior to admission. Also admits to bifrontal headaches with insomnia and disrupted sleep patterns. No chest pains, but admits to episodic palpitations especially on exertion with progressive shortness of breath, also noted on exertion. His oral intake has been variable with nausea and dyspepsia although denies any actual vomiting episodes. Also admits to upper abdominal pain, worse in the last few hours prior to admission. No recent alterations of bowel or urinary patterns. PHYSICAL EXAMINATION: GENERAL: This is an aesthetic male, chronically ill looking. VITAL SIGNS: With a blood pressure of 140/80, pulse of 70 beats per minute regular, temperature 98, respirations 20, height is 5 feet 8 inches, weight is 121 pounds. HEENT: Head normocephalic. Eyes anicteric with pink conjunctivae. Funduscopy is possible at this time. Ears, nose and throat otherwise normal. NECK: Supple. Thyroid gland is normal in size. No carotid bruits or cervical adenopathy. CARDIOPULMONARY: Some adynamic precordium. S1, S2 is rapid and regular. LUNGS: Clear to auscultation. ABDOMEN: Flat, soft with positive bowel sounds. EXTREMITIES: No peripheral edema. Pulses are +2 bilaterally. LABORATORY DATA: His chemistries showed a BUN of 10, sodium 141, potassium 3.6, chloride 104, CO2 32, glucose 102 and creatinine 0.9. His liver studies showed initially an AST of 433, but is down now to 164 today. His ALT is 154 and down to 101 today and his alkaline phosphatase was initially 268 and is now to 154 today, as noted. His lipase levels initially done was 542 with an amylase of 109 and a triglyceride level of 710 and cholesterol 273, HDL of 24, LDL 57. ASSESSMENT: This is a 51-year-old male with acute pancreatitis, most likely related to underlying choledocholithiasis, although we have to exclude also the possibility of recent alcoholic intoxication which could have been a contributing factor to the aforementioned. However, we have to exclude also any underlying familial combined dyslipidemia, especially with the degree of elevation of his triglyceride level as noted. PLAN OF MANAGEMENT: We will obtain a comprehensive metabolic panel tomorrow and obtain also a repeat lipase and lipid panel in the morning. Moreover, we will also sent out to a reference lab a so-called lipoprotein fractionation or phenotype to confirm and/or indicate the presence of underlying familial combined dyslipidemia. We will obtain serial chemistries and supplement accordingly needed. We will consider the addition of fenofibrate and omega-3 fatty acids, and further management of hypertriglyceridemia prior to this patient's discharge. We will follow and advise accordingly. Lidia Hernandez MD
[2017-06-13 12:31] VITALS: BP 130/59; TEMP 98.5
--- NOTE | 2017-06-13 14:07 | PN ---
DATE: SUBJECTIVE: The patient's abdominal pain has improved. He is tolerating solid diet. No vomiting. No shortness of breath. PHYSICAL EXAMINATION: VITAL SIGNS: Blood pressure 123/61, heart rate 82, temperature 98.6, respirations 20. HEENT: Pale conjunctivae. CHEST: Clear. HEART: S1 and S2, regular. ABDOMEN: Soft. EXTREMITIES: No edema. LABORATORY DATA: Hemoglobin and hematocrit 9.7 and 28.7, white count 5.1, and platelet count 102,000. Today's SMA-7: Sodium 143, potassium 3.9, chloride 103, CO2 of 33, glucose 92, BUN 8, creatinine 0.9. AST and ALT are 132 and 96 respectively. Alkaline phosphatase 132, slight improvement compared to yesterday. LDL cholesterol is 161, total cholesterol is 215, both are elevated. ASSESSMENT: 1. Severe aortic insufficiency. 2. Calculus cholecystitis. 3. Ethyl alcohol abuse. 4. Pancreatitis. 5. Hyperlipidemia including hypertriglyceridemia on admission. RECOMMENDATIONS: Continue current albuterol inhaler. Continue IV meropenem at 1 g every 8 hours, Protonix 40 mg p.o. once a day, and thiamine 200 mg once a day. Fernando Rubio MD
[2017-06-13 14:31] VITALS: PULSE 116
--- NOTE | 2017-06-13 15:33 | PN ---
DATE: 06/13/2017 PULMONARY PROGRESS NOTE REFERRING PHYSICIAN: Dr. Stokes. SUBJECTIVE: The patient is lying in the bed, head at 45 degree, feels better. No headache, no rhinitis, tolerating diet well, has mild abdominal pain, has a bowel movement. No leg pain or leg swelling. OBJECTIVE: GENERAL: In no acute distress. VITAL SIGNS: Temperature is 98, heart rate is 92, respiratory rate is 20, blood pressure 130/59, pulse ox 94% on room air. HEENT: Moist mucous membrane. No ulcer or thrush noted. NECK: Supple. No JVD. LUNGS: Have a fair airflow with rhonchi. HEART: S1 and S2. ABDOMEN: positive bowel sound, mild tenderness. EXTREMITY: There is no edema. NEUROLOGICAL: Awake, alert. Follows simple command. MEDICATIONS: He is Ativan 0.5 mg IV every 6 hour p.r.n., DuoNeb every 6 hours, mag oxide 400 mg twice a day, meropenem 1 g every 8 hours, Protonix 40 mg daily, vitamin B1 at 200 mg daily. LABORATORY DATA: Shows hemoglobin 9.7, hematocrit 28.7, WBC 5.1, platelets 102. Sodium 143, potassium 3.9, chloride 103, bicarbonate 33, BUN 8, creatinine 0.9, hemoglobin A1c is 6, calcium 8.2, GGT is 567, AST 132, ALT 96, alkaline phosphatase is 132, albumin is 2.6. TSH 4.57. Microbiology: Blood culture has been negative. IMPRESSION AND PLAN: Cholecystitis, gallstone, coronary artery disease, history of coronary artery bypass surgery, history of valve replacement, alcohol abuse, chronic obstructive lung disease, elevated liver enzymes, has alcohol withdrawal. Clinically, he is much better. 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 He is okay to discharge, fall precaution. A long discussion with the patient about alcohol abuse and relation to the falls. He expressed understanding. Ativan p.r.n. will be given. Outpatient followup with Dr. Stokes, will need outpatient pulmonary function test, will need surgical followup at one point. He will need cholecystectomy. Thank you and we will follow with you. Kranthi Ace MD [facility] # [id number]
--- NOTE | 2017-06-13 16:11 | CP.PCM.PN ---
Subjective - Date & Time of Evaluation Date of Evaluation: 06/13/17 Time of Evaluation: 10:35 - Subjective Subjective: Abdominal pain and appetite have improved, no fevers, no diarrhea, no nausea. Objective - Vital Signs/Intake and Output Vital Signs (last 24 hours): Temp Pulse Resp BP Pulse Ox 98.5 F 116 H 20 130/59 L 94 L 06/13/17 12:00 06/13/17 14:00 06/13/17 12:00 06/13/17 12:00 06/13/17 05:57 Intake and Output: 06/13/17 06/13/17 06:59 18:59 Intake Total 440 300 Output Total 300 Balance 440 0 - Medications Medications: Current Medications Albuterol/Ipratropium (Duoneb 3 Mg/0.5 Mg (3 Ml) Ud) 3 ml IH [id number] [facility] Last Admin: 06/13/17 14:34 Dose: Not Given Calcium/Vitamin D (Oscal-D 250 Mg-125 Units Tab) 1 tab PO DAILY [facility] Last Admin: 06/13/17 09:48 Dose: 1 tab Meropenem (Merrem Iv 1 Gm Premix) 50 mls @ 100 mls/hr IVPB Q8 MICKEY PRN Reason: Protocol Stop: 06/17/17 06:01 Last Admin: 06/13/17 13:21 Dose: 100 mls/hr Lorazepam (Ativan) 0.5 mg IVP Q6H PRN; Protocol PRN Reason: Anxiety Last Admin: 06/13/17 08:21 Dose: 0.5 mg Magnesium Oxide (Mag-Ox) 400 mg PO BID [facility] Last Admin: 06/13/17 09:47 Dose: 400 mg Pantoprazole Sodium (Protonix Ec Tab) 40 mg PO 0600 [facility] Last Admin: 06/13/17 05:16 Dose: 40 mg Thiamine HCl (Vitamin B1 Tab) 200 mg PO DAILY [facility] Last Admin: 06/13/17 09:47 Dose: 200 mg - Labs Labs: 06/13/17 06:25 06/13/17 06:25 PT 11.8 SECONDS (9.4-12.5) 06/07/17 19:33 INR 1.03 (0.93-1.08) 06/07/17 19:33 - Constitutional Appears: Non-toxic - Head Exam Head Exam: NORMAL INSPECTION - Neck Exam Neck Exam: absent: Meningismus - Respiratory Exam Respiratory Exam: Decreased Breath Sounds. absent: Rales - Cardiovascular Exam Cardiovascular Exam: +S1, +S2 - GI/Abdominal Exam GI & Abdominal Exam: Soft. absent: Tenderness Assessment and Plan - Assessment and Plan (Free Text) Plan: Assessment R/O sepsis from acute cholecystitis with associated pancreatitis HTN S/P heart valve replacement CAD S/P CABG alcoholism Plan continue Merrem day 6 - should complete at least 7-10 days of antibiotics; blood cx are negative; MRCP suggests acute cholecystitis but HIDA scan does not - follow up further recommendations of surgery will continue to follow clinically
--- NOTE | 2017-06-14 08:44 | PN ---
DATE: 06/13/2017 LOCATION: In room 269 SUBJECTIVE: This is a 51-year-old male admitted with diffuse abdominal pain and acute pancreatitis most likely related to underlying choledocholithiasis and possibly also alcohol induced with significant history of chronic alcoholism and recent alcoholic intoxication and is now being followed closely for metabolic management. His initial lipids were quite elevated as mentioned and the latest triglycerides have improved with IV hydration and today's level is 124 with a cholesterol of 215 and a lipase level of 227. His TSH is 4.57. The latest chemistry showed a BUN of 8, sodium 143, potassium 3.9, chloride 103, CO2 of 33, glucose 92 and creatinine 0.9. So at this time, his hemoglobin A1c is 6%, indicative of early type 2 prediabetes. He is not on any kind of oral hypoglycemic drug therapy as noted. His liver transaminases are quite elevated especially the GGTP which is 567, again most likely related to recent alcoholic intoxication as noted. So at this time, we will continue the IV hydration as given and obtain serial chemistries and supplement accordingly as needed. We will hold off any kind of fenofibrate because of the remarkable response just to withholding alcohol spent with the inpatient admission and also with IV hydration as given. Would recommend, however, omega-3 fatty acids to be given as a outpatient. We will also await the reports of the lipoprotein fractionation which will confirm and/or indicate the presence of underlying familial combined dyslipidemia. Concur with the present GI workup and management as noted. We will follow this. Lidia Hernandez MD
== END 2017-06-13 17:15 | disposition home or self-care (01) | DRG 444 ==
LOC: ED 19:00 → ERH 21:49 → 2RNO 06-08 01:34
PROVIDERS: ADMIT Internal Medicine; ATTEND Internal Medicine
DX: K80.00 Calculus of gallbladder with acute cholecystitis without obstruction (principal); K85.10 Biliary acute pancreatitis without necrosis or infection; F10.239 Alcohol dependence with withdrawal, unspecified; D61.818 Other pancytopenia; K70.10 Alcoholic hepatitis without ascites; E87.6 Hypokalemia; I35.1 Nonrheumatic aortic (valve) insufficiency; F32.9 Major depressive disorder, single episode, unspecified; F17.210 Nicotine dependence, cigarettes, uncomplicated; J44.9 Chronic obstructive pulmonary disease, unspecified; I25.10 Atherosclerotic heart disease of native coronary artery without angina pectoris; E83.51 Hypocalcemia; E83.42 Hypomagnesemia; E78.1 Pure hyperglyceridemia; Y90.0 Blood alcohol level of less than 20 mg/100 ml; Z88.0 Allergy status to penicillin; Z95.2 Presence of prosthetic heart valve; Z95.1 Presence of aortocoronary bypass graft